=== PATIENT | male | born 1955 | race Caucasian/White ===

== ENCOUNTER 2019-11-08 12:41 | Emergency (ER) | payer BC ==
[2019-11-08 12:51] VITALS: TEMP 98.7; BMI 32.5
--- NOTE | 2019-11-08 13:27 | PDOC ---
History of Present Illness - General Chief Complaint: Shortness of Breath Stated Complaint: SOB Time Seen by Provider: 11/08/19 13:03 History Source: Patient Exam Limitations: No Limitations - History of Present Illness Initial Comments: 11/08/19 13:04 PCP: Jennifer HPI: 64yo M pmh HTN,COVID+ in July, symptomatic for several weeks with fever, cough, SOB, self quarantined at home, repeat negative on 08/29/19, presenting with "I think I have panic attacks since COVID." Patient reports roughly 1 episode of waking up in the night with shortness of breath and feeling panicked. He reports that his symptoms spontaneously resolve when he attempts to fall back asleep. He states that he has no symptoms at present. Denies chest pain, SOB at present, syncope, lightheadedness, fevers, chills, palpitations, cough, nausea, vomiting, abdominal pain, weakness, numbness / tingling. Denies edema then when edema demonstrated, says it is because he wears tight socks. Expressed concern with access to his PCP as primary reason for presentation today. Recently started on Trazodone for insomnia but reports he does not use it as directed, instead taking it PRN during the night when he experiences an episode of presenting complaint. 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 All: Sulfa medications, avoids ASA due to remote peptic ulcer Meds: Metoprolol, Trazodone, B12 PMH: As above PSH: Denies Past History - Travel History Traveled outside of the country in the last 30 days: No Close contact w/someone who was outside of country & ill: No - Medical History Allergies/Adverse Reactions: Allergies Allergy/AdvReac Type Severity Reaction Status Date / Time Sulfa (Sulfonamide Allergy Hives Unverified 08/10/14 07:10 Antibiotics) [Sulfa(Sulfonamide Antibiotics)] aspirin AdvReac Severe Unverified 08/10/14 07:10 Home Medications: Ambulatory Orders Acetaminophen W/ Codeine #3 [Tylenol # 3 -] 1 tab PO Q6H PRN #12 tablet 08/10/14 Vitamin B12 1,000 mcg PO DAILY 10/24/14 Anemia: No Asthma: No Cancer: No Cardiac Disorders: No CVA: No COPD: No CHF: No Dementia: No Diabetes: No GI Disorders: Yes (BLEEDING ULCER, BLOATING, REFLUX, POLYPS) Disorders: No HTN: No Hypercholesterolemia: No Kidney Stones: Yes Liver Disease: No Seizures: No Thyroid Disease: No - Surgical History Abdominal Surgery: Yes (rt ing hernia) Appendectomy: No Cardiac Surgery: No Cholecystectomy: No Lung Surgery: No Neurologic Surgery: No Orthopedic Surgery: No - Immunization History Immunization Up to Date: No - Psycho-Social/Smoking History Smoking Status: No Smoking History: Never smoked Have you smoked in the past 12 months: No Number of Cigarettes Smoked Daily: 12 If you are a former smoker, when did you quit?: 40 YRS AGO Information on smoking cessation initiated: No - Substance Abuse Hx (Audit-C & DAST Scrn) How often the patient has a drink containing alcohol: Never Score: In Men: 4 or > Positive; In Women: 3 or > Positive: 0 Screen Result (Pos requires Nsg. Audit-10AR): Negative In the last yr the pt used illegal drug/Rx for NonMed reason: No Score: Yes response is considered Positive: 0 Screen Result (Positive result requires Nsg. DAST-10): Negative Review of Systems - Review of Systems Able to Perform ROS?: Yes Is the patient limited Yemeni proficient: Yes Constitutional: No: Chills, Diaphoresis, Fever, Night Sweats, Weakness HEENTM: No: Nose Congestion, Throat Pain, Mouth Pain Respiratory: Yes: Shortness of Breath (during overnight panic episodes). No: Cough, SOB with Exertion, SOB at Rest, Wheezing Cardiac (ROS): Yes: Edema ("from my tight socks"). No: Chest Pain, Irregular Heart Rate, Lightheadedness, Palpitations, Syncope, Chest Tightness ABD/GI: No: Constipated, Diarrhea, Nausea, Vomiting : No: Burning, Dysuria, Frequency Musculoskeletal: No: Muscle Pain, Muscle Weakness Integumentary: No: Pallor, Pruritus, Rash Neurological: No: Headache, Numbness, Tingling, Weakness Psychiatric: Yes: Anxiety, Stressors (COVID-19), Sleep Pattern Change (interm ittent insomnia). No: Change in Appetite Endocrine: No: Increased Thirst, Increased Urine, Change in Weight Hematologic/Lymphatic: No: Anemia, Blood Clots, Easy Bleeding All Other Systems: Reviewed and Negative *Physical Exam - Vital Signs Last Vital Signs Temp Pulse Resp BP Pulse Ox 98.7 F 114 H 16 152/107 H 98 11/08/19 12:46 11/08/19 12:46 11/08/19 12:46 11/08/19 12:46 11/08/19 12:46 - Physical Exam 11/08/19 14:11 Vitals reviewed, notable for tachycardia on arrival, stable O2 Sat, afebrile, mild hypertension GEN: Well appearing, appears stated age, NAD, comfortable. AAOx3. HEENT: NCAT, EOMI, PERRL. Sclera anicteric, non-injected. No facial asymmetry. Moist mucous membranes. Normal voice. Trachea midline. CV: RRR, S1/S2, no murmurs / rubs / gallops appreciated. LUNG: CTABL, normal work of breathing. No wheezes, rales, rhonchi. No cough. Speaking full sentences. GI: Soft, NTND, +BS, no guarding, no rebound. No masses. EXTREMITIES: 2+ distal pulses. +trace bilateral edema at the ankles. No clubbing / cyanosis. No gross deformity in any extremity. SKIN: Warm, dry, no rashes appreciated, non-jaundiced. PSYCH: Normal mood and affect. Cooperative and appropriate. NEURO: CN grossly intact. Moving all extremities well. Normal strength and sensation grossly. Medical Decision Making - Medical Decision Making 11/08/19 13:36 Patient requested to leave AMA. Patient is determined to be of sound mind and reasoning. The patient fully understands the care they are refusing and the risks associated with leaving before complete medical evaluation as explained by the medical team. The patient has been provided with a discharge summary, return precautions, and the reassurance that the Emergency Department will resume workup if the patient changes their mind. Immediate primary care follow up has been urged. At time of AMA, patient BP 147/91, HR 98, RR 18, Sat 96% on RA. 11/08/19 13:38 Patient concerning for r/o PE given recent COVID-19 infection, no anticoagulation with shortness of breath and tachycardia. Advised that leaving could result in progression and . Recommended labs, imaging to rule out PE, new CHF, PNA. Despite this, patient states he does not want to stay and wishes to follow up with his PCP and will return if he feels worse. Denies symptoms at present and says he believes his overnight symptoms were a panic attack but understand the risks of it being something else. Discharge - Discharge Information Problems reviewed: Yes Clinical Impression/Diagnosis: Shortness of breath Condition: Stable Disposition: AGAINST MEDICAL ADVICE - Follow up/Referral Referrals: Bonnie Rodriguez MD [Primary Care Provider] - - Patient Discharge Instructions Patient Printed Discharge Instructions: DI for Pulmonary Embolism Additional Instructions: You are leaving against medical advice and refusing evaluation and treatment of shortness of breath . It is essential that you follow up with your primary care physician within the next 1-2 days. Please return to the Emergency Department if you change your mind and wish to continue evaluation of your symptoms or if you experience any of the following: - worsening of your symptoms - chest pain - shortness of breath and/or difficulty breathing - seizure - changes in behavior - lightheadedness, and/or dizziness - severe abdominal pain - severe or bloody vomiting - bloody diarrhea - inability to eat or drink - anything that concerns you - Post Discharge Activity
--- NOTE | 2019-11-08 13:57 | PDOC ---
Documentation entered by Milan Rae SCRIBE, acting as scribe for Jason Veliz MD. Jason Veliz MD: This documentation has been prepared by the Hang barfield inMilan SCRIBE, under my direction and personally reviewed by me in its entirety. I confirm that the documentation accurately reflects all work, treatment, procedures, and medical decision making performed by me. Attending Attestation - Resident Resident Name: BranHakeem quintanilla - ED Attending Attestation I have performed the following: I have examined & evaluated the patient, The case was reviewed & discussed with the resident, I agree w/resident's findings & plan, Exceptions are as noted - HPI HPI: 11/08/19 13:48 The patient is a 64 year old male with a significant PMHx of HTN, COVID+ in July (repeat negative on 08/29/2019) peptic ulcer disease and kidney stones, patient reports lithotripsy (6 years ago [address] urologist Dr[address] Espino), who reports to the ED with panic attacks. Pt states he has 1panic attack per week since COVID-19. Allergies: Sulfa (Sulfonamide Antibiotics), aspirin PCP: Dr. Cerrato - Physicial Exam PE: 11/08/19 13:56 EXAMINATION CONSTITUTIONAL: Well-appearing; well-nourished; Mildly anxious appearing; in no apparent distress HEAD: Normocephalic; atraumatic EYES: PERRL; EOM intact ENMT: External appears normal; normal oropharynx NECK: Supple; non-tender; no cervical lymphadenopathy CARD: Normal S1, S2; no murmurs, rubs, or gallops RESP: Normal chest excursion with respiration; breath sounds clear and equal bilaterally; no wheezes, rhonchi, or rales ABD: Soft, non-distended; non-tender; no palpable organomegaly, no palpable hernias EXT: Normal ROM in all four extremities; non-tender to palpation; distal pulses intact SKIN: Warm, dry, no rash NEURO: No focal neurological deficiencies. - Medical Decision Making 11/08/19 13:56 64-year-old male with history of hypertension presented with shortness of breath and hypertension claiming that it was a panic attack. Patient refused to allow for an EKG or any other evaluation. Patient wishes to leave and promises to return promptly after taking up his child. Patient has been advised of the risk associated with undiagnosed ACS versus PE. Patient expressed understanding but still wishes to leave. Discharge - Discharge Information Problems reviewed: Yes Clinical Impression/Diagnosis: Shortness of breath Condition: Stable Disposition: AGAINST MEDICAL ADVICE - Follow up/Referral Referrals: Bonnie Rodriguez MD [Primary Care Provider] - - Patient Discharge Instructions Patient Printed Discharge Instructions: DI for Pulmonary Embolism Additional Instructions: You are leaving against medical advice and refusing evaluation and treatment of shortness of breath . It is essential that you follow up with your primary care physician within the next 1-2 days. Please return to the Emergency Department if you change your mind and wish to continue evaluation of your symptoms or if you experience any of the following: - worsening of your symptoms - chest pain - shortness of breath and/or difficulty breathing - seizure - changes in behavior - lightheadedness, and/or dizziness - severe abdominal pain - severe or bloody vomiting - bloody diarrhea - inability to eat or drink - anything that concerns you - Post Discharge Activity
[2019-11-08 14:25] VITALS: BP 142/90; PULSE 98
== END 2019-11-08 14:15 | disposition left against medical advice (07) ==
LOC: JER 12:41
DX: R06.02 Shortness of breath (principal)
CPT/HCPCS: 99283-25

== ENCOUNTER 2019-11-09 08:16 | Inpatient (IN) | payer BC ==
--- NOTE | 2019-11-09 08:36 | PDOC ---
Attending Attestation - Resident Resident Name: Carlton Garcia - HPI HPI: 11/09/19 09:48 Pt presents to the ED complaining of shortness of breath that has been persistent since he was diagnosed with COVID in July, but was worse yesterday. Denies orthopnea, but does complain of OLIVEIRA. Denies chest pain. Denies leg swelling or weight gain. Patient has seen his PCP for these complaints, who attributed his symptoms to anxiety. 11/09/19 09:53 - Physicial Exam PE: 11/09/19 09:55 Agree with resident exam. PAtient is alert and oriented x 3 and in no acute distress. CV: tachycardic, irregularly irregular, no murmurs. Pulm: + crackles in the bases. + tachypnea. 11/09/19 09:56 - Medical Decision Making 11/09/19 09:57 Pt presents to the ED complaining of OLIVEIRA and shortness of breath. EKG shows A fib, which is apparently new. CXR is consistent with CHF. Will check labs and BNP. Will reassess. 11/09/19 09:58 Discharge - Discharge Information Problems reviewed: Yes Clinical Impression/Diagnosis: Shortness of breath, CHF (congestive heart failure), A-fib, Anxiety Condition: Improved Disposition: HOME - Follow up/Referral - Patient Discharge Instructions - Post Discharge Activity
--- NOTE | 2019-11-09 08:58 | PDOC ---
History of Present Illness - General Chief Complaint: Shortness of Breath Stated Complaint: SOB Time Seen by Provider: 11/09/19 08:27 - History of Present Illness Initial Comments: Mitch Cam is a 64 y/o male with PMH significant for asthma and COVID-19, presenting today with shortness of breath and anxiety. Reports that after being diagnosed with COVID in July, he has had difficulty sleeping and feels anxious. Prescribed trazadone. Reports that over the past two days he has had mild shortness of breath worse on exertion and anxiety. Denies chest pain. Denies fever/chills. Denies headache. Denies back pain. Denies abd pain. No stool/urinary symptoms. Past History - Medical History Allergies/Adverse Reactions: Allergies Allergy/AdvReac Type Severity Reaction Status Date / Time Sulfa (Sulfonamide Allergy Hives Unverified 11/09/19 08:24 Antibiotics) [Sulfa(Sulfonamide Antibiotics)] aspirin AdvReac Severe Unverified 11/09/19 08:24 Home Medications: Ambulatory Orders Acetaminophen W/ Codeine #3 [Tylenol # 3 -] 1 tab PO Q6H PRN #12 tablet 08/10/14 Vitamin B12 1,000 mcg PO DAILY 10/24/14 Anemia: No Asthma: No Cancer: No Cardiac Disorders: No CVA: No COPD: No CHF: No Dementia: No Diabetes: No GI Disorders: Yes (BLEEDING ULCER, BLOATING, REFLUX, POLYPS) Disorders: No HTN: No Hypercholesterolemia: No Kidney Stones: Yes Liver Disease: No Seizures: No Thyroid Disease: No - Surgical History Abdominal Surgery: Yes (rt ing hernia) Appendectomy: No Cardiac Surgery: No Cholecystectomy: No Lung Surgery: No Neurologic Surgery: No Orthopedic Surgery: No - Immunization History Immunization Up to Date: No - Psycho-Social/Smoking History Smoking Status: No Smoking History: Never smoked Have you smoked in the past 12 months: No Number of Cigarettes Smoked Daily: 12 If you are a former smoker, when did you quit?: 40 YRS AGO Information on smoking cessation initiated: No - Substance Abuse Hx (Audit-C & DAST Scrn) How often the patient has a drink containing alcohol: Never Score: In Men: 4 or > Positive; In Women: 3 or > Positive: 0 Screen Result (Pos requires Nsg. Audit-10AR): Negative In the last yr the pt used illegal drug/Rx for NonMed reason: No Score: Yes response is considered Positive: 0 Screen Result (Positive result requires Nsg. DAST-10): Negative Review of Systems - Review of Systems Comments:: GENERAL/CONSTITUTIONAL: No fever or chills. No weakness._ HEAD, EYES, EARS, NOSE AND THROAT: No change in vision. No change in hearing. No sore throat._ CARDIOVASCULAR: No chest pain. Reports shortness of breath. RESPIRATORY: Denies cough, hemoptysis_ GASTROINTESTINAL: No nausea, vomiting, diarrhea or constipation._ GENITOURINARY: No dysuria, frequency, or change in urination._ MUSCULOSKELETAL: No joint or muscle swelling or pain. No neck or back pain._ SKIN: No rash_ NEUROLOGIC: No headache, vertigo, loss of consciousness, or change in strength/sensation._ ENDOCRINE: No increased thirst. No abnormal weight change_ HEMATOLOGIC/LYMPHATIC: No anemia, easy bleeding, or history of blood clots._ ALLERGIC/IMMUNOLOGIC: No hives or skin allergy._ PSYCH: Reports anxiety. *Physical Exam - Vital Signs Last Vital Signs Temp Pulse Resp BP Pulse Ox 97.9 F 115 H 21 H 161/108 H 96 11/09/19 08:19 11/09/19 08:19 11/09/19 08:19 11/09/19 08:19 11/09/19 08:19 - Physical Exam GENERAL: Awake, alert, and oriented to person/place/time, in no acute distress_ HEAD: No signs of trauma, normocephalic, atraumatic _ EYES: PERRLA, EOMI, sclera anicteric, conjunctiva clear_ ENT: Hearing grossly normal, nares patent, oropharynx clear without exudates. No uvular deviation. Moist mucosa_ NECK: Normal ROM, supple, no lymphadenopathy, JVD, or masses_ LUNGS: No distress, speaks in full sentences, clear to auscultation bilaterally. HEART: Tachycardic, normal S1 and S2, no murmurs appreciated, peripheral pulses normal and equal bilaterally._ ABDOMEN: Soft, nontender, normoactive bowel sounds. No guarding, no rebound. No masses_ EXTREMITIES: Normal inspection, Normal range of motion. 1+ pitting edema in bila teral lower extremities. No clubbing or cyanosis_ NEUROLOGICAL: Cranial nerves II through XII grossly intact. Normal speech, normal gait, no focal sensorimotor deficits _ SKIN: Warm, Dry, normal turgor, no rashes or lesions noted_ ED Treatment Course - LABORATORY CBC & Chemistry Diagram: 11/09/19 09:00 11/09/19 09:00 - RADIOLOGY Radiology Studies Ordered: Category Date Time Status CHEST X-RAY PORTABLE* [RAD] Stat Radiology 11/09/19 08:35 Completed Medical Decision Making - Medical Decision Making 64M hx of asthma presenting with shortness of breath and anxiety for the past two days. Has had anxiety since July. Tachycardic at bedside. -labs -ekg -cxr 11/09/19 08:57 CXR shows cardiomegaly, congestive changes, atelectasis, fluid in RLL. Will add BNP. 11/09/19 09:18 EKG shows 117 bpm, a-fib with RVR, no ST elevation, no axis deviation, QTc 504. Currently prescribed metoprolol but concern for new onset CHF. 10 mg diltiazem. 11/09/19 10:23 D/w Dr. Dunlap cardiology. Can give lopressor if needed. Will come in to evaluate. Lasix 20 mg Labs reviewed. Laboratory Last Values WBC 7.9 K/mm3 (4.0-10.0) 11/09/19 09:00 RBC 4.74 M/mm3 (4.00-5.60) 11/09/19 09:00 Hgb 14.8 GM/dL (11.7-16.9) 11/09/19 09:00 Hct 44.6 % (35.4-49) 11/09/19 09:00 MCV 94.0 fl (80-96) 11/09/19 09:00 MCH 31.2 pg (25.7-33.7) 11/09/19 09:00 MCHC 33.2 g/dl (32.0-35.9) 11/09/19 09:00 RDW 13.7 % (11.9-15.9) 11/09/19 09:00 Plt Count 290 K/MM3 (134-434) 11/09/19 09:00 MPV 9.2 fl (7.5-11.1) 11/09/19 09:00 Absolute Neuts (auto) 6.0 K/mm3 (1.5-8.0) 11/09/19 09:00 Neutrophils % 75.8 % (42.8-82.8) 11/09/19 09:00 Lymphocytes % 15.5 % (8-40) 11/09/19 09:00 Monocytes % 7.3 % (3.8-10.2) 11/09/19 09:00 Eosinophils % 0.8 % (0-4.5) 11/09/19 09:00 Basophils % 0.6 % (0-2.0) 11/09/19 09:00 Nucleated RBC % 0 % (0-0) 11/09/19 09:00 PT with INR 13.30 SEC (9.7-13.0) H 11/09/19 09:00 INR 1.13 (0.83-1.09) H 11/09/19 09:00 PTT (Actin FS) 31.0 SECONDS (25.2-36.5) 11/09/19 09:00 Sodium 142 mmol/L (136-145) 11/09/19 09:00 Potassium 4.5 mmol/L (3.5-5.1) 11/09/19 09:00 Chloride 108 mmol/L (98-107) H 11/09/19 09:00 Carbon Dioxide 26 mmol/L (21-32) 11/09/19 09:00 Anion Gap 8 MMOL/L (8-16) 11/09/19 09:00 BUN 21.7 mg/dL (7-18) H 11/09/19 09:00 Creatinine 1.0 mg/dL (0.55-1.3) 11/09/19 09:00 Est GFR (CKD-EPI)AfAm 90.50 11/09/19 09:00 Est GFR (CKD-EPI)NonAf 78.08 11/09/19 09:00 Random Glucose 107 mg/dL (74-106) H 11/09/19 09:00 Calcium 9.2 mg/dL (8.5-10.1) 11/09/19 09:00 Total Bilirubin 0.8 mg/dL (0.2-1) 11/09/19 09:00 AST 35 U/L (15-37) 11/09/19 09:00 ALT 72 U/L (13-61) H 11/09/19 09:00 Alkaline Phosphatase 81 U/L (45-117) 11/09/19 09:00 B-Natriuretic Peptide 7693.5 pg/ml (5-125) H 11/09/19 09:00 Total Protein 6.8 g/dl (6.4-8.2) 11/09/19 09:00 Albumin 3.6 g/dl (3.4-5.0) 11/09/19 09:00 11/09/19 10:58 D/w Dr. Walton who accepts the patient for admission. Requests CTA PE and BLE duplex US to r/o PE. Discharge - Discharge Information Problems reviewed: Yes Clinical Impression/Diagnosis: Shortness of breath, CHF (congestive heart failure), A-fib, Anxiety Condition: Stable - Admission Yes - Follow up/Referral - Patient Discharge Instructions - Post Discharge Activity
[2019-11-09] MEDS ORDERED: dilTIAZem HCL 50 MG/10 ML - 10 ML VIAL IVPUSH ONE (09:18)
[2019-11-09] MEDS ORDERED: dilTIAZem HCL 125 MG/25 ML - 25 ML VIAL ONE (09:25)
[2019-11-09 09:39] LABS: BASO % 0.6 % (0-2.0); EOS % 0.8 % (0-4.5); HEMATOCRIT 44.6 % (35.4-49); HEMOGLOBIN 14.8 GM/dL (11.7-16.9); LYMPH % 15.5 % (8-40); MCH 31.2 pg (25.7-33.7); MCHC 33.2 g/dl (32.0-35.9); MEAN PLT VOLUME 9.2 fl (7.5-11.1); MONO % 7.3 % (3.8-10.2); NEUT % 75.8 % (42.8-82.8); PLATELET COUNT 290 K/MM3 (134-434); RBC 4.74 M/mm3 (4.00-5.60); RDW 13.7 % (11.9-15.9); WHITE BLOOD COUNT 7.9 K/mm3 (4.0-10.0)
[2019-11-09 09:46] LABS: INR 1.13 (0.83-1.09); PROTHROMBIN TIME (PATIENT) 13.3 SEC (9.7-13.0)
[2019-11-09 09:57] LABS: POTASSIUM 4.5 mmol/L (3.5-5.1)
[2019-11-09 10:03] LABS: ALBUMIN 3.6 g/dl (3.4-5.0); BLOOD UREA NITROGEN 21.7 mg/dL (7-18); CALCIUM 9.2 mg/dL (8.5-10.1)
[2019-11-09 10:07] LABS: BILIRUBIN,TOTAL 0.8 mg/dL (0.2-1); N-TERMINAL BNP 7693.5 pg/ml (5-125); TOT PROT 6.8 g/dl (6.4-8.2)
--- NOTE | 2019-11-09 10:21 | CON.CARD ---
Consult Consult Specialty:: Cardiology Referred by:: Emergency Medicine Reason for Consultation:: Dyspnea, rapid afib - History of Present Illness Chief Complaint: Dyspnea History of Present Illness: Mitch Cam is a 64 y/o male with PMH significant for peptic ulcer disease, kidney stones with lithotripsy, asthma and COVID-19 in July, presenting today with shortness of breath with exertion, palpitations, light-headedness, anxiety, orthopnea, LE edema. Reports that after being diagnosed with COVID in July, he has had difficulty sleeping and feels anxious. Prescribed trazadone. Reports that over the past two days he has had mild shortness of breath worse on exertion and anxiety. Denies chest pain, true syncope, reports medication compliance. - History Source History Provided By: Patient Limitations to Obtaining History: No Limitations - Alcohol/Substance Use Hx Alcohol Use: No - Smoking History Smoking history: Never smoked Have you smoked in the past 12 months: No Aproximately how many cigarettes per day: 12 If you are a former smoker, when did you quit?: 40 YRS AGO Home Medications - Allergies Allergies/Adverse Reactions: Allergies Allergy/AdvReac Type Severity Reaction Status Date / Time Sulfa (Sulfonamide Allergy Hives Unverified 11/09/19 08:24 Antibiotics) [Sulfa(Sulfonamide Antibiotics)] aspirin AdvReac Severe Unverified 11/09/19 08:24 - Home Medications Home Medications: Ambulatory Orders Acetaminophen W/ Codeine #3 [Tylenol # 3 -] 1 tab PO Q6H PRN #12 tablet 08/10/14 Vitamin B12 1,000 mcg PO DAILY 10/24/14 Review of Systems - Review of Systems Cardiovascular: reports: Edema, Palpitations Respiratory: reports: SOB on Exertion Vital Signs: Vital Signs Temperature 97.9 F 11/09/19 08:19 Pulse Rate 115 H 11/09/19 08:24 Respiratory Rate 20 11/09/19 10:15 Blood Pressure 153/102 H 11/09/19 10:15 O2 Sat by Pulse Oximetry (%) 96 11/09/19 10:15 Constitutional: Yes: No Distress, Calm Neck: Yes: Supple Respiratory: Yes: Regular, Diminished, On Nasal O2, Rales, SOB on Exertion Gastrointestinal: Yes: Normal Bowel Sounds, Soft, Abdomen, Obese Cardiovascular: Yes: Tachycardia, Pulse Irregular JVD: No Carotid Bruit: No Heart Sounds: Yes: S1, S2 Murmur: Yes: Systolic Murmur, Grade 1 Edema: Yes Edema: LLE: 1+, RLE: 1+ - Other Data Labs, Other Data: CBC, BMP 11/09/19 09:00 11/09/19 09:00 INR, PTT INR 1.13 (0.83-1.09) H 11/09/19 09:00 Troponin, BNP 11/09/19 09:00 B-Natriuretic Peptide 7693.5 H Troponin, BNP 11/09/19 09:00 B-Natriuretic Peptide 7693.5 H Afib @ [address] changes Ejection Fraction %: LVEF > or = 40 % Imaging - Results Chest X-ray: Report Reviewed (Congestion, right effusion) Problem List - Problems (1) Paroxysmal atrial fibrillation with rapid ventricular response Code(s): I48.0 - PAROXYSMAL ATRIAL FIBRILLATION (2) Acute diastolic (congestive) heart failure Code(s): I50.31 - ACUTE DIASTOLIC (CONGESTIVE) HEART FAILURE (3) Hypertensive cardiomyopathy Code(s): I11.9 - HYPERTENSIVE HEART DISEASE WITHOUT HEART FAILURE; I43 - CARDIOMYOPATHY IN DISEASES CLASSIFIED ELSEWHERE Qualifiers: Heart failure presence: with heart failure Qualified Code(s): I11.0 - Hypertensive heart disease with heart failure; I43 - Cardiomyopathy in diseases classified elsewhere Assessment/Plan 1. Acute diastolic heart failure 2. Atrial fibrillation with RVR 3. Hypertensive heart disease 4. R/O OSAS 5. PUD not active P:1. IV diuresis with monitor diuretic response, renal fxn and electrolytes 2. Echocardiogram to assess ventricular and valve fxn, atrial sizes, f/u TSH, lipid panel, Ha1c 3. Continue Toprol XL 50 qd, IV Cardizem as needed for rate control, Eliquis 5 bid given elevated risk score, consider DCCV if no spontaneous cardioversion with rate-control 4. Sleep study as outpatient r/o OSAS 5. F/u in office 6. Thank you for consultative opportunity
[2019-11-09] MEDS ORDERED: FUROSEMIDE 40 MG/4 ML INJECTABLE VIAL IVPUSH ONE (10:22)
[2019-11-09] MEDS ORDERED: dilTIAZem HCL 50 MG/10 ML - 10 ML VIAL IVPUSH PRN (10:47)
[2019-11-09] MEDS ORDERED: FUROSEMIDE 40 MG/4 ML INJECTABLE VIAL ONE (11:01)
--- NOTE | 2019-11-09 11:48 | EKG ---
Test Reason : Blood Pressure : / mmHG Vent. Rate : 117 BPM Atrial Rate : 102 BPM P-R Int : 000 ms QRS Dur : 094 ms QT Int : 362 ms P-R-T Axes : 000 -07 102 degrees QTc Int : 504 ms ATRIAL FIBRILLATION WITH RAPID VENTRICULAR RESPONSE NONSPECIFIC ST ABNORMALITY ABNORMAL QRS-T ANGLE, CONSIDER PRIMARY T WAVE ABNORMALITY ABNORMAL ECG WHEN COMPARED WITH ECG OF 21-JAN-2017 13:49, ATRIAL FIBRILLATION HAS REPLACED SINUS RHYTHM T WAVE AMPLITUDE HAS DECREASED IN LATERAL LEADS Confirmed by BOWEN LEUNG MD ([id number]) on 11/09/2019 11:48:01 AM Referred By: Confirmed By:BOWEN LEUNG MD
[2019-11-09 11:51] LABS: EPI CELLS 9 /uL (0-25.1); HYALINE CASTS 4 /uL (0-3.1); PH,URINE 5.5 (5.0-8.0); URINE APPEARANCE CLEAR; URINE BACTERIA 23 /uL (0-1359); URINE BILIRUBIN NEGATIVE (NEGATIVE); URINE COLOR DK YELLOW; URINE GLUCOSE (UA) NEGATIVE (NEGATIVE); URINE KETONE NEGATIVE (NEGATIVE); URINE LEUK ESTERASE NEGATIVE (NEGATIVE); URINE NITRITE NEGATIVE (NEGATIVE); URINE PROTEIN 1+ (NEGATIVE); URINE RBC 13 /uL (0-23.9); URINE UROBILINOGEN 0.2 mg/dL (0.2-1.0); URINE WBC 21 /uL (0-25.8)
--- NOTE | 2019-11-09 13:37 | ECHO ---
Name: CHARITYARA GALVIN Exam:Adult Echocardiogram Study Date: 11/09/2019 11:22 AM Age: 64 yrs Reason For Study: afib MMode/2D Measurements & Calculations IVSd: 1.5 cm Ao root diam: 3.8 cm LVIDd: 4.6 cm LA dimension: 4.5 cm LVIDs: 4.2 cm LVPWd: 1.5 cm IVSs: 1.7 cm LVPWs: 2.0 cm EDV(Teich): 98.5 ml ESV(Teich): 76.8 ml LAV (MOD-bp): 146.0 ml TAPSE: 1.8 cm RV S Sandeep: 10.4 cm/sec Doppler Measurements & Calculations MV E max sandeep: 110.4 cm/sec Ao V2 max: 150.9 cm/sec MV A max sandeep: 79.5 cm/sec Ao max P.3 mmHg MV E/A: 1.4 AI P1/2t: 354.7 msec MV dec time: 0.09 sec AI max sandeep: 385.4 cm/sec LV V1 max P.0 mmHg AI max P.8 mmHg LV V1 max: 85.9 cm/sec AI dec slope: 318.3 cm/sec2 Med Peak E' Sandeep: 3.5 cm/sec Med E/e': 31.5 Procedure A complete two-dimensional transthoracic echocardiogram was performed (2D, M-mode, Doppler and color flow Doppler). The patient was in atrial fibrillation with rapid ventricular response during the exam with a heart rate exceeding 100 bpm. Left Ventricle The left ventricle is normal in size. LVEF difficult to assess due to afib with rvr during study, adrianna ears to be mildly reduced. Ejection Fraction = 45-50%. There is mild global hypokinesis of the left ventricle . Right Ventricle The right ventricle is normal in size and function. Atria The left atrium is moderately dilated. Right atrial size is normal. Mitral Valve There is no mitral regurgitation noted. Tricuspid Valve No tricuspid regurgitation. There was insufficient TR detected to calculate RV systolic pressure. Aortic Valve No hemodynamically significant valvular aortic stenosis. Mild aortic regurgitation. Pulmonic Valve There is no pulmonic valvular regurgitation. Great Vessels Mild aortic root dilatation. Pericardium/Pleura There is no pericardial effusion. Interpretation Summary The patient was in atrial fibrillation with rapid ventricular response during the exam. LVEF difficult to assess due to afib with rvr during study, appears to be mildly reduced. There is mild global hypokinesis of the left ventricle. The left ventricle is normal in size. The right ventricle is normal in size and function. The left atrium is moderately dilated. Mild aortic regurgitation. Mild aortic root dilatation. MD Kale Francois 11/09/2019 01:36 PM
[2019-11-09] MEDS: FUROSEMIDE 40 MG/4 ML INJECTABLE VIAL IVPUSH SCH (14:19)
--- NOTE | 2019-11-09 15:47 | HP ---
Admitting History and Physical - Admission History of Present Illness: 64 y/o male with PMH significant for asthma and COVID-19, presenting today with shortness of breath and anxiety. Reports that after being diagnosed with COVID in July, he has had difficulty sleeping and feels anxious. Prescribed trazadone. Reports that over the past two days he has had mild shortness of breath worse on exertion and anxiety. Denies chest pain. Denies fever/chills. Denies headache. Denies back pain. Denies abd pain. No stool/urinary symptoms. History Source: Patient Limitations to Obtaining History: Poor Historian - Past Medical History Cardiovascular: Yes: CAD Pulmonary: Yes: Other (H/O COVID-19 Positive in the past and Recovered) Gastrointestinal: Yes: Other (constipation) Renal/: Yes: Renal Calculi, Other (S/P Lithotripsy) Psych: Yes: Anxiety (Insomnia Post COVID infection) - Smoking History Smoking history: Never smoked Have you smoked in the past 12 months: No Aproximately how many cigarettes per day: 12 If you are a former smoker, when did you quit?: 40 YRS AGO - Alcohol/Substance Use Hx Alcohol Use: No - Social History Usual Living Arrangement: Yes: With Spouse History of Recent Travel: No Home Medications - Allergies Allergies/Adverse Reactions: Allergies Allergy/AdvReac Type Severity Reaction Status Date / Time Sulfa (Sulfonamide Allergy Hives Unverified 11/09/19 08:24 Antibiotics) [Sulfa(Sulfonamide Antibiotics)] aspirin AdvReac Severe Unverified 11/09/19 08:24 - Home Medications Home Medications: Ambulatory Orders Acetaminophen W/ Codeine #3 [Tylenol # 3 -] 1 tab PO Q6H PRN #12 tablet 08/10/14 Vitamin B12 1,000 mcg PO DAILY 10/24/14 Review of Systems - Review of Systems Constitutional: reports: Weakness Eyes: reports: No Symptoms HENT: reports: Hearing Loss Cardiovascular: reports: Other (Palpiations and chest pain) Respiratory: reports: SOB on Exertion Genitourinary: reports: Other (H/O Lithitripsy for stones) Musculoskeletal: reports: Back Pain Neurological: reports: Headache, Weakness Hematology/Lymphatic: reports: No Symptoms Psychiatric: reports: Anxiety Physical Examination Vital Signs: Vital Signs Temperature 97.9 F 11/09/19 08:19 Pulse Rate 97 H 11/09/19 14:00 Respiratory Rate 22 H 11/09/19 14:00 Blood Pressure 128/89 11/09/19 14:00 O2 Sat by Pulse Oximetry (%) 96 11/09/19 14:00 Labs: CBC, BMP 11/09/19 09:00 11/09/19 09:00 Problem List - Problems (1) HTN (hypertension) Code(s): I10 - ESSENTIAL (PRIMARY) HYPERTENSION (2) A-fib Code(s): I48.91 - UNSPECIFIED ATRIAL FIBRILLATION (3) Acute diastolic (congestive) heart failure Code(s): I50.31 - ACUTE DIASTOLIC (CONGESTIVE) HEART FAILURE (4) Anxiety Code(s): F41.9 - ANXIETY DISORDER, UNSPECIFIED (5) CHF (congestive heart failure) Code(s): I50.9 - HEART FAILURE, UNSPECIFIED (6) Back strain Code(s): S39.012A - STRAIN OF MUSCLE, FASCIA AND TENDON OF LOWER BACK, INIT Assessment/Plan (1) HTN (hypertension) Code(s): I10 - ESSENTIAL (PRIMARY) HYPERTENSION (2) A-fib Code(s): I48.91 - UNSPECIFIED ATRIAL FIBRILLATION (3) Acute diastolic (congestive) heart failure Code(s): I50.31 - ACUTE DIASTOLIC (CONGESTIVE) HEART FAILURE (4) Anxiety Code(s): F41.9 - ANXIETY DISORDER, UNSPECIFIED (5) CHF (congestive heart failure) Code(s): I50.9 - HEART FAILURE, UNSPECIFIED (6) Back strain Code(s): S39.012A - STRAIN OF MUSCLE, FASCIA AND TENDON OF LOWER BACK, INIT/ Pt Had Echo. ECHO findings suggestive of Low EF and Pul HTN/ Cardiomyopathy? we will discuss with Cardiology. Today cardiology FU is inconclusive.
[2019-11-09] MEDS ORDERED: LORazepam 2 MG TABLET PO ONE (16:36)
[2019-11-09] MEDS ORDERED: LORazepam 0.5 MG TABLET ONE (16:41)
[2019-11-09] MEDS: APIXABAN 5 MG TABLET PO SCH (22:32)
[2019-11-10 03:55] VITALS: BMI 30.5
[2019-11-10] MEDS: FUROSEMIDE 40 MG/4 ML INJECTABLE VIAL IVPUSH SCH (06:10)
[2019-11-10 08:53] LABS: BLOOD UREA NITROGEN 20.1 mg/dL (7-18); CREATININE 1.2 mg/dL (0.55-1.3); POTASSIUM 4.1 mmol/L (3.5-5.1)
[2019-11-10] MEDS: APIXABAN 5 MG TABLET PO SCH ×2 (09:23→22:19)
--- NOTE | 2019-11-10 09:53 | PN ---
Progress Note (short form) - Note Progress Note: Pt is is a 64 y/o male with PMH significant for peptic ulcer disease, kidney stones with HTN,lithotripsy, asthma and COVID-19 in July, presenting today with shortness of breath with exertion, palpitations, light-headedness, anxiety, orthopnea, LE edema. Reports that after being diagnosed with COVID in July, he has had difficulty sleeping and feels anxious. Prescribed trazadone. Reports that over the past two days he has had mild shortness of breath worse on exerti on and anxiety. Denies chest pain, true syncope, reports medication compliance. 11/09; pt feels better, SOB decreased,no CP/Palpitations; states was taking metoprolol for HTn at home, not clear if BP controllrd reviewed Echo: CMP with EF 30-355, dilated atria and myopathic e', elevated PCWP - Vital Signs Temperature 98.2 F 11/10/19 07:47 Pulse Rate 119 H 11/10/19 07:47 Respiratory Rate 22 H 11/10/19 07:47 Blood Pressure 147/85 11/10/19 07:47 O2 Sat by Pulse Oximetry (%) 95 11/10/19 07:47 Constitutional: Yes: No Distress, Calm Neck: Yes: Supple Respiratory: Yes: Regular, Diminished, On Nasal O2, Rales, SOB on Exertion Gastrointestinal: Yes: Normal Bowel Sounds, Soft, Abdomen, Obese Cardiovascular: Yes: Tachycardia, Pulse Irregular,S1S2, no M/Cl/R JVD: No Carotid Bruit: No Heart Sounds: Yes: S1, S2 Murmur: Yes: Systolic Murmur, Grade 1 Edema: Yes Edema: LLE: 1+, RLE: 1+ CBC, BMP 11/09/19 09:00 11/10/19 06:42 Troponin, BNP 11/09/19 09:00 Troponin I 0.02 B-Natriuretic Peptide 7693.5 H Afib @ [address] changes Active Medications Apixaban (Eliquis -) 5 mg PO BID LENARD Last Admin: 11/10/19 09:23 Dose: 5 mg Documented by: Diltiazem HCl (Cardizem Injection -) 10 mg IVPUSH Q4H PRN PRN Reason: TACHYCARDIA Last Admin: 11/09/19 14:19 Dose: 10 mg Documented by: Furosemide (Lasix Injection -) 40 mg IVPUSH BIDLASIX [facility] Last Admin: 11/10/19 06:10 Dose: 40 mg Documented by: Metoprolol Succinate (Toprol Xl -) 50 mg PO DAILY [facility] Last Admin: 11/10/19 09:23 Dose: 50 mg Documented by: Imaging - Results Chest X-ray: Report Reviewed (Congestion, right effusion) Problem List - Problems (1) Paroxysmal atrial fibrillation with rapid ventricular response Code(s): I48.0 - PAROXYSMAL ATRIAL FIBRILLATION (2) Acute diastolic (congestive) heart failure Code(s): I50.31 - ACUTE DIASTOLIC (CONGESTIVE) HEART FAILURE (3) Hypertensive cardiomyopathy Code(s): I11.9 - HYPERTENSIVE HEART DISEASE WITHOUT HEART FAILURE; I43 - CARDIOMYOPATHY IN DISEASES CLASSIFIED ELSEWHERE Qualifiers: Heart failure presence: with heart failure Qualified Code(s): I11.0 - Hypertensive heart disease with heart failure; I43 - Cardiomyopathy in diseases classified elsewhere Assessment/Plan 1. Acute CHF: systolic and diastolic,EF 30-35%, Increased OCWP>15 mmHg: E?: Covid, vs HTN, AFb RVR,CAD? 2. Atrial fibrillation with RVR 3. Hypertensive heart disease 4. R/O OSAS 5. PUD not active 6.Covid 07/2019 Echo reviewed: LVH, mod LV dysfunction,global hypo EF 30-35%; severely dilated LA,mos RA, elevated EDP/LAP >15 mmHg; cardiomyopathy with decreased e' covid pending P: 1. IV diuresis with monitor diuretic response, renal fxn and electrolytes 2. Increase Toprol XL 50 to BID, Eliquis 5 bid given elevated risk score, 3.Add Entresto a day with increase as tolerated 4. Sleep study as outpatient r/o OSAS 5-This weekend to remain in hospital, adjust meds, decide on Wednesday for further management (likely outpt f/u) 5. F/u in office
--- NOTE | 2019-11-10 10:03 | PN ---
Progress Note, Physician History of Present Illness: Pt is relatively better Decreased SOB HR still not well Controlled Metoprolol BID Lasix 40 daily No Chest pain - Current Medication List Current Medications: Active Medications Apixaban (Eliquis -) 5 mg PO BID [facility] Last Admin: 11/10/19 09:23 Dose: 5 mg Documented by: Diltiazem HCl (Cardizem Injection -) 10 mg IVPUSH Q4H PRN PRN Reason: TACHYCARDIA Last Admin: 11/09/19 14:19 Dose: 10 mg Documented by: Furosemide (Lasix Injection -) 40 mg IVPUSH BIDLASIX [facility] Last Admin: 11/10/19 06:10 Dose: 40 mg Documented by: Metoprolol Succinate (Toprol Xl -) 50 mg PO DAILY [facility] Last Admin: 11/10/19 09:23 Dose: 50 mg Documented by: - Objective Vital Signs: Vital Signs Temperature 98.2 F 11/10/19 07:47 Pulse Rate 119 H 11/10/19 07:47 Respiratory Rate 22 H 11/10/19 07:47 Blood Pressure 147/85 11/10/19 07:47 O2 Sat by Pulse Oximetry (%) 95 11/10/19 07:47 Constitutional: Yes: Anxious Eyes: Yes: Conjunctiva Clear, EOM Intact HENT: Yes: Atraumatic, Normocephalic Neck: Yes: Supple, Trachea Midline Cardiovascular: Yes: Regular Rate and Rhythm, Pulse Irregular, S1, S2, S3 Respiratory: Yes: Regular, CTA Bilaterally Gastrointestinal: Yes: Normal Bowel Sounds, Soft Musculoskeletal: Yes: Joint Stiffness Edema: Yes Peripheral Pulses WNL: Yes Neurological: Yes: Alert, Oriented, Cran Nerves II-XII Intact Labs: CBC, BMP 11/09/19 09:00 11/10/19 06:42 INR, PTT INR 1.13 (0.83-1.09) H 11/09/19 09:00 Problem List - Problems (1) A-fib Code(s): I48.91 - UNSPECIFIED ATRIAL FIBRILLATION (2) Acute diastolic (congestive) heart failure Code(s): I50.31 - ACUTE DIASTOLIC (CONGESTIVE) HEART FAILURE (3) Anxiety Code(s): F41.9 - ANXIETY DISORDER, UNSPECIFIED (4) CHF (congestive heart failure) Code(s): I50.9 - HEART FAILURE, UNSPECIFIED (5) HTN (hypertension) Code(s): I10 - ESSENTIAL (PRIMARY) HYPERTENSION
[2019-11-10] MEDS ORDERED: PT OWN MED DRAWER 7, Y5N ONE ×2 (13:14→19:44)
[2019-11-10] MEDS: SACUBITRIL/VALSARTAN 24 MG-26 MG TABLET PO SCH ×2 (13:23→22:17)
[2019-11-10] MEDS: DOCUSATE SODIUM 100 MG CAPSULE (FP) PO SCH (22:15)
--- NOTE | 2019-11-11 06:38 | PN ---
Progress Note (short form) - Note Progress Note: Chief Complaint: Events noted, notes reviewed, sitting at the bedside, anxious to go home, denies any chest discomfort, reports dyspnea but clinically improved History of Present Illness: Seen and examined on telemetry. Events noted, notes reviewed, sitting at the bedside, anxious to go home, denies any chest discomfort, reports dyspnea but clinically improved Medications: Current Medications Generic Name Dose Route Start Last Admin Trade Name Freq PRN Reason Stop Dose Admin Apixaban 5 mg 11/09/19 22:00 11/11/19 09:29 Eliquis - PO 5 mg BID LENARD Administration Diltiazem HCl 10 mg 11/09/19 10:47 11/09/19 14:19 Cardizem Injection - IVPUSH 10 mg Q4H PRN Administration TACHYCARDIA Docusate Sodium 300 mg 11/10/19 22:00 11/10/19 22:15 Colace - PO 300 mg HS LENARD Administration Furosemide 40 mg 11/11/19 10:00 11/11/19 09:31 Lasix Injection - IVPUSH 40 mg DAILY LENARD Administration Metoprolol Succinate 50 mg 11/10/19 22:00 11/11/19 09:29 Toprol Xl - PO 50 mg BID LENARD Administration Sacubitril/Valsartan 1 tab 11/10/19 11:00 11/11/19 09:29 Entresto 24 Mg-26 Mg Tablet PO 1 tab BID LENARD Administration Review of Systems Constitutional: denies Chills or Fever Respiratory: reports: Dyspnea Cardiovascular: As noted above Gastrointestinal: denies Nausea, Vomiting, Diarrhea or Constipation or Abdominal Discomfort Genitourinary: No Symptoms Reported Musculoskeletal: No Symptoms Reported Vital Signs: Last Vital Signs Temp Pulse Resp BP Pulse Ox 98.0 F 105 H 20 138/77 95 11/11/19 08:30 11/11/19 08:30 11/11/19 08:30 11/11/19 08:30 11/11/19 08:30 Intake & Output 11/08/19 11/09/19 11/10/19 11/11/19 23:59 23:59 23:59 23:59 Intake Total 740 240 Output Total 1400 1050 600 Balance -1400 -310 -360 Weight 265 lb 244 lb 6.4 oz Neck: Supple Negative JVD Respiratory: Diminished Breath Sounds at the Bases Cardiovascular: S1 S2 Irregularly irregular Gastrointestinal: Soft Benign Normal Bowel Sounds Ext: Trace Edema Bilaterally Labs: CBC, BMP 11/11/19 05:40 11/11/19 05:40 CBC, BMP 11/09/19 09:00 11/10/19 06:42 Hepatic Panel Total Bilirubin 0.8 mg/dL (0.2-1) 11/09/19 09:00 AST 35 U/L (15-37) 11/09/19 09:00 ALT 72 U/L (13-61) H 11/09/19 09:00 Alkaline Phosphatase 81 U/L (45-117) 11/09/19 09:00 Albumin 3.6 g/dl (3.4-5.0) 11/09/19 09:00 INR, PTT INR 1.13 (0.83-1.09) H 11/09/19 09:00 Assessment/Plan ASSESSMENT: 1. Clinical presentation is consistent with acute on chronic class II-III NYHA classification left ventricular failure related to diastolic/systolic left ventricular dysfunction, resolving 2. Probable coronary artery disease angina pectoris 3. Persistent atrial fibrillation with periods of rapid ventricular response [id number] score of 3 4. Non-sustained ventricular tachycardia 5. Hypertensive heart disease 6. Obstructive sleep apnea syndrome to be considered in the differential diagnosis 7. History of peptic ulcer disease PLAN: 1. Continue diuretic therapy/Lasix therapy and initiate orally with close monitoring of renal function and electrolytes 2. Continue Toprol-XL therapy and dose titration as needed, hemodynamics permitting 3. Continue Entresto therapy and dose titration as needed, hemodynamics permitting 4. Continue Eliquis therapy with close monitoring of hemoglobin level 5. If atrial fibrillation is persistent consideration for elective synchronized cardioversion in 3-4 weeks 6. Recommend sleep study as outpatient for evaluation of the above-noted suspected obstructive sleep apnea syndrome Mikayla Peraza MD
[2019-11-11 06:57] LABS: BASO % 0.6 % (0-2.0); HEMATOCRIT 45.5 % (35.4-49); HEMOGLOBIN 14.9 GM/dL (11.7-16.9); LYMPH % 18.7 % (8-40); MCH 30.6 pg (25.7-33.7); MCHC 32.7 g/dl (32.0-35.9); MEAN CELL VOLUME 93.3 fl (80-96); MEAN PLT VOLUME 8.9 fl (7.5-11.1); NEUT % 71.7 % (42.8-82.8); PLATELET COUNT 286 K/MM3 (134-434); RBC 4.88 M/mm3 (4.00-5.60); RDW 13.4 % (11.9-15.9); WHITE BLOOD COUNT 8.8 K/mm3 (4.0-10.0)
[2019-11-11 07:23] LABS: BLOOD UREA NITROGEN 20.6 mg/dL (7-18); CALCIUM 8.7 mg/dL (8.5-10.1)
[2019-11-11] MEDS: SACUBITRIL/VALSARTAN 24 MG-26 MG TABLET PO SCH ×2 (09:29→21:52)
[2019-11-11] MEDS: APIXABAN 5 MG TABLET PO SCH ×2 (09:29→21:51)
[2019-11-11] MEDS: FUROSEMIDE 40 MG/4 ML INJECTABLE VIAL IVPUSH SCH (09:31)
--- NOTE | 2019-11-11 14:45 | PN ---
Progress Note, Physician History of Present Illness: Pt is relatively better Pt still has Afib /Episode of Vtach discussed with Dr Cifuentes we will optimize the rate PATRICIA while on anticoagulation/ Cardioversion Pt is very noncomplaint/Anxious person - Current Medication List Current Medications: Active Medications Apixaban (Eliquis -) 5 mg PO BID [facility] Last Admin: 11/11/19 09:29 Dose: 5 mg Documented by: Diltiazem HCl (Cardizem Injection -) 10 mg IVPUSH Q4H PRN PRN Reason: TACHYCARDIA Last Admin: 11/09/19 14:19 Dose: 10 mg Documented by: Docusate Sodium (Colace -) 300 mg PO HS [facility] Last Admin: 11/10/19 22:15 Dose: 300 mg Documented by: Furosemide (Lasix Injection -) 40 mg IVPUSH DAILY [facility] Last Admin: 11/11/19 09:31 Dose: 40 mg Documented by: Metoprolol Succinate (Toprol Xl -) 50 mg PO BID [facility] Last Admin: 11/11/19 09:29 Dose: 50 mg Documented by: Sacubitril/Valsartan (Entresto 24 Mg-26 Mg Tablet) 1 tab PO BID [facility] Last Admin: 11/11/19 09:29 Dose: 1 tab Documented by: - Objective Vital Signs: Vital Signs Temperature 98.0 F 11/11/19 08:30 Pulse Rate 105 H 11/11/19 08:30 Respiratory Rate 20 11/11/19 08:30 Blood Pressure 138/77 11/11/19 08:30 O2 Sat by Pulse Oximetry (%) 95 11/11/19 08:30 Constitutional: Yes: Calm Eyes: Yes: Conjunctiva Clear, EOM Intact HENT: Yes: Atraumatic, Normocephalic Gastrointestinal: Yes: Normal Bowel Sounds, Soft Edema: No Neurological: Yes: Alert, Oriented, Cran Nerves II-XII Intact Labs: CBC, BMP 11/11/19 05:40 11/11/19 05:40 INR, PTT INR 1.13 (0.83-1.09) H 11/09/19 09:00 Problem List - Problems (1) A-fib Code(s): I48.91 - UNSPECIFIED ATRIAL FIBRILLATION (2) Acute diastolic (congestive) heart failure Code(s): I50.31 - ACUTE DIASTOLIC (CONGESTIVE) HEART FAILURE (3) Anxiety Code(s): F41.9 - ANXIETY DISORDER, UNSPECIFIED (4) CHF (congestive heart failure) Code(s): I50.9 - HEART FAILURE, UNSPECIFIED (5) HTN (hypertension) Code(s): I10 - ESSENTIAL (PRIMARY) HYPERTENSION Assessment/Plan (1) HTN (hypertension) Code(s): I10 - ESSENTIAL (PRIMARY) HYPERTENSION (2) A-fib Code(s): I48.91 - UNSPECIFIED ATRIAL FIBRILLATION (3) Acute diastolic (congestive) heart failure Code(s): I50.31 - ACUTE DIASTOLIC (CONGESTIVE) HEART FAILURE (4) Anxiety Code(s): F41.9 - ANXIETY DISORDER, UNSPECIFIED (5) CHF (congestive heart failure) Code(s): I50.9 - HEART FAILURE, UNSPECIFIED (6) Back strain Code(s): S39.012A - STRAIN OF MUSCLE, FASCIA AND TENDON OF LOWER BACK, INIT/ Pt Had Echo. ECHO findings suggestive of Low EF and Pul HTN/ Cardiomyopathy? Pt will have PATRICIA/ Cardioversion if needed
--- NOTE | 2019-11-11 14:54 | EKG ---
Test Reason : Blood Pressure : / mmHG Vent. Rate : 112 BPM Atrial Rate : 113 BPM P-R Int : 000 ms QRS Dur : 090 ms QT Int : 340 ms P-R-T Axes : 000 -29 122 degrees QTc Int : 464 ms ATRIAL FIBRILLATION WITH RAPID VENTRICULAR RESPONSE ABNORMAL ECG WHEN COMPARED WITH ECG OF 09-NOV-2019 09:15, T WAVE INVERSION NOW EVIDENT IN LATERAL LEADS Confirmed by SHAMA DOAN MD ([id number]) on 11/11/2019 2:54:15 PM Referred By: Cathy ALEJANDRA Confirmed By:SHAMA DOAN MD
[2019-11-11] MEDS: SPIRONOLACTONE 25 MG TABLET PO SCH (18:11)
[2019-11-11] MEDS: DOCUSATE SODIUM 100 MG CAPSULE (FP) PO SCH (21:51)
[2019-11-11] MEDS: ZOLPIDEM TARTRATE 5 MG TABLET PO PRN (22:32)
--- NOTE | 2019-11-12 06:57 | PN ---
Progress Note (short form) - Note Progress Note: Chief Complaint: Events noted, notes reviewed, sitting at the bedside, again anxious to go home, denies any chest discomfort, reports dyspnea with physical exertion but clinically significantly improved History of Present Illness: Seen and examined on telemetry. Events noted, notes reviewed, sitting at the bedside, again anxious to go home, denies any chest discomfort, reports dyspnea with physical exertion but clinically significantly improved As per my discussion with patient's primary care provider yesterday there is no role for electrophysiology studies at this point unless patient demonstrates failure of atrial fibrillation control with one antiarrhythmic utilization at least at which point atrial fibrillation radiofrequency ablation would be recommended Patient eventually (Not this hospitalization) will require right and left heart cardiac catheterization coronary angiography for further evaluation of cardiomyopathy prior to which atrial fibrillation control is the objective since I strongly feel that his cardiomyopathy could be related to tachycardia induced cardiomyopathy Options of intervention include proceeding with early transesophageal echocardiography guided synchronized cardioversion/this hospitalization versus synchronized cardioversion in 3-4 weeks of adequate anticoagulation- as per my discussion with patient's primary care provider will attempt early intervention/PATRICIA guided synchronized cardioversion this coming week- inpatient, above was reviewed in detail with the patient and to be further discussed with his brother Arben Medications: Current Medications Generic Name Dose Route Start Last Admin Trade Name Freq PRN Reason Stop Dose Admin Apixaban 5 mg 11/09/19 22:00 11/12/19 09:32 Eliquis - PO 5 mg BID LENARD Administration Diltiazem HCl 10 mg 11/09/19 10:47 11/09/19 14:19 Cardizem Injection - IVPUSH 10 mg Q4H PRN Administration TACHYCARDIA Docusate Sodium 300 mg 11/10/19 22:00 11/11/19 21:51 Colace - PO 300 mg HS LENARD Administration Furosemide 40 mg 11/11/19 10:00 11/12/19 09:32 Lasix Injection - IVPUSH 40 mg DAILY LENARD Administration Metoprolol Succinate 50 mg 11/10/19 22:00 11/12/19 09:33 Toprol Xl - PO 50 mg BID LENARD Administration Sacubitril/Valsartan 1 tab 11/10/19 11:00 11/12/19 09:32 Entresto 24 Mg-26 Mg Tablet PO 1 tab BID LENARD Administration Spironolactone 25 mg 11/11/19 15:00 11/12/19 09:32 Aldactone - PO 25 mg DAILY LENARD Administration Zolpidem Tartrate 5 mg 11/11/19 22:11 11/11/19 22:32 Ambien - PO 5 mg HS PRN Administration INSOMNIA Review of Systems Constitutional: denies Chills or Fever Respiratory: reports: Dyspnea Cardiovascular: As noted above Gastrointestinal: denies Nausea, Vomiting, Diarrhea or Constipation or Abdominal Discomfort Genitourinary: No Symptoms Reported Musculoskeletal: No Symptoms Reported Vital Signs: Last Vital Signs Temp Pulse Resp BP Pulse Ox 98.0 F 102 H 20 163/76 94 L 11/12/19 06:00 11/12/19 06:00 11/12/19 06:00 11/12/19 06:00 11/11/19 21:00 Intake & Output 11/09/19 11/10/19 11/11/19 11/12/19 23:59 23:59 23:59 23:59 Intake Total 740 860 Output Total 1400 1050 600 Balance -1400 -310 260 Weight 265 lb 244 lb 6.4 oz Neck: Supple Negative JVD Respiratory: Diminished Breath Sounds at the Bases Cardiovascular: S1 S2 Irregularly irregular Gastrointestinal: Soft Benign Normal Bowel Sounds Ext: Trace Edema Bilaterally Labs: CBC, BMP 11/12/19 05:44 11/12/19 05:44 CBC, BMP 11/11/19 05:40 11/11/19 05:40 Hepatic Panel Total Bilirubin 0.8 mg/dL (0.2-1) 11/09/19 09:00 AST 35 U/L (15-37) 11/09/19 09:00 ALT 72 U/L (13-61) H 11/09/19 09:00 Alkaline Phosphatase 81 U/L (45-117) 11/09/19 09:00 Albumin 3.6 g/dl (3.4-5.0) 11/09/19 09:00 INR, PTT INR 1.13 (0.83-1.09) H 11/09/19 09:00 Assessment/Plan ASSESSMENT: 1. Clinical presentation is consistent with acute on chronic class II-III NYHA classification left ventricular failure related to diastolic/systolic left ventricular dysfunction, resolved 2. Probable coronary artery disease angina pectoris- further evaluation at a later date/outpatient evaluation 3. Persistent atrial fibrillation with periods of rapid ventricular response [id number] score of 3 4. Non-sustained ventricular tachycardia- optimization of patient's medical therapy 5. Hypertensive heart disease- further therapy adjustment 6. Obstructive sleep apnea syndrome to be considered in the differential diagnosis 7. History of peptic ulcer disease PLAN: 1. Continue diuretic therapy/Lasix therapy and initiate orally with close monito ring of renal function and electrolytes 2. Continue Toprol-XL therapy and dose titration as needed, hemodynamics permitting 3. Continue Entresto therapy and dose titration as needed, hemodynamics perm itting 4. Continue Eliquis therapy with close monitoring of hemoglobin level 5. As outlined above plan to proceed with PATRICIA guided synchronized cardioversion this coming week/inpatient risks, benefits and alternatives were reviewed in detail with the patient 6. Recommend sleep study as outpatient for evaluation of the above-noted suspected obstructive sleep apnea syndrome Mikayla Peraza MD
[2019-11-12 07:37] LABS: BASO % 0.5 % (0-2.0); EOS % 1.2 % (0-4.5); HEMATOCRIT 45.6 % (35.4-49); HEMOGLOBIN 15.2 GM/dL (11.7-16.9); LYMPH % 22.7 % (8-40); MCH 30.9 pg (25.7-33.7); MCHC 33.2 g/dl (32.0-35.9); MEAN CELL VOLUME 92.9 fl (80-96); MEAN PLT VOLUME 8.8 fl (7.5-11.1); MONO % 8.9 % (3.8-10.2); NEUT % 66.7 % (42.8-82.8); PLATELET COUNT 284 K/MM3 (134-434); RBC 4.91 M/mm3 (4.00-5.60); WHITE BLOOD COUNT 8.4 K/mm3 (4.0-10.0)
[2019-11-12 07:52] LABS: BLOOD UREA NITROGEN 21.7 mg/dL (7-18); CALCIUM 8.9 mg/dL (8.5-10.1); CREATININE 1.1 mg/dL (0.55-1.3); POTASSIUM 4.1 mmol/L (3.5-5.1)
[2019-11-12] MEDS ORDERED: PT OWN MED DRAWER 7, Y5N ONE ×3 (08:27→21:02)
[2019-11-12] MEDS: SACUBITRIL/VALSARTAN 24 MG-26 MG TABLET PO SCH (09:32)
[2019-11-12] MEDS: FUROSEMIDE 40 MG/4 ML INJECTABLE VIAL IVPUSH SCH (09:32)
[2019-11-12] MEDS: APIXABAN 5 MG TABLET PO SCH ×2 (09:32→22:02)
[2019-11-12] MEDS: SPIRONOLACTONE 25 MG TABLET PO SCH (09:32)
--- NOTE | 2019-11-12 14:01 | PN ---
Progress Note, Physician History of Present Illness: Case discussed with Dr Mikayla Peraza Pt rate need be controlled first Pt is noncomplaint and Nervous patient Spoke with Brother also on phone at beside with patient. will have PATRICIA/cardiversion if does not get converted medically. Discuused about Amiodarone also with cardiology for short period of time as the patient nervous robb and Cognitively does not comprehend well. No SOB No chest pain No Blood in stool/Urine - Current Medication List Current Medications: Active Medications Apixaban (Eliquis -) 5 mg PO BID [facility] Last Admin: 11/12/19 09:32 Dose: 5 mg Documented by: Docusate Sodium (Colace -) 300 mg PO HS [facility] Last Admin: 11/11/19 21:51 Dose: 300 mg Documented by: Furosemide (Lasix -) 40 mg PO DAILY [facility] Metoprolol Succinate (Toprol Xl -) 100 mg PO BID [facility] Sacubitril/Valsartan (Entresto 49 Mg-51 Mg Tablet) 1 tab PO BID [facility] Spironolactone (Aldactone -) 25 mg PO DAILY [facility] Last Admin: 11/12/19 09:32 Dose: 25 mg Documented by: Zolpidem Tartrate (Ambien -) 5 mg PO HS PRN PRN Reason: INSOMNIA Last Admin: 11/11/19 22:32 Dose: 5 mg Documented by: - Objective Vital Signs: Vital Signs Temperature 98.2 F 11/12/19 08:46 Pulse Rate 109 H 11/12/19 08:46 Respiratory Rate 20 11/12/19 08:46 Blood Pressure 142/74 11/12/19 08:46 O2 Sat by Pulse Oximetry (%) 96 11/12/19 08:46 Constitutional: Yes: Anxious Eyes: Yes: Conjunctiva Clear, EOM Intact HENT: Yes: Atraumatic, Normocephalic Neck: Yes: Supple, Trachea Midline Respiratory: Yes: Regular, CTA Bilaterally Edema: No Peripheral Pulses WNL: Yes Labs: CBC, BMP 11/12/19 05:44 11/12/19 05:44 INR, PTT INR 1.13 (0.83-1.09) H 11/09/19 09:00 Problem List - Problems (1) A-fib Code(s): I48.91 - UNSPECIFIED ATRIAL FIBRILLATION (2) Acute diastolic (congestive) heart failure Code(s): I50.31 - ACUTE DIASTOLIC (CONGESTIVE) HEART FAILURE (3) Anxiety Code(s): F41.9 - ANXIETY DISORDER, UNSPECIFIED (4) CHF (congestive heart failure) Code(s): I50.9 - HEART FAILURE, UNSPECIFIED (5) HTN (hypertension) Code(s): I10 - ESSENTIAL (PRIMARY) HYPERTENSION Assessment/Plan (1) HTN (hypertension) Code(s): I10 - ESSENTIAL (PRIMARY) HYPERTENSION (2) A-fib Code(s): I48.91 - UNSPECIFIED ATRIAL FIBRILLATION (3) Acute diastolic (congestive) heart failure Code(s): I50.31 - ACUTE DIASTOLIC (CONGESTIVE) HEART FAILURE (4) Anxiety Code(s): F41.9 - ANXIETY DISORDER, UNSPECIFIED (5) CHF (congestive heart failure) Code(s): I50.9 - HEART FAILURE, UNSPECIFIED (6) Back strain Code(s): S39.012A - STRAIN OF MUSCLE, FASCIA AND TENDON OF LOWER BACK, INIT/ Pt Had Echo. ECHO findings suggestive of Low EF and Pul HTN/ Cardiomyopathy? Pt will have PATRICIA/ Cardioversion if needed added spironolactone Spoke with Brother also on phone at beside with patient on wednesday. will have PATRICIA/cardiversion if does not get converted medically. Discuused about Amiodarone also with cardiology for short period of time as the patient nervous robb and Cognitively does not comprehend well.
[2019-11-12] MEDS: PANTOPRAZOLE 20 MG TABLET PO SCH (22:02)
[2019-11-12] MEDS: ZOLPIDEM TARTRATE 5 MG TABLET PO PRN (22:02)
[2019-11-12] MEDS: DOCUSATE SODIUM 100 MG CAPSULE (FP) PO SCH (22:09)
[2019-11-12] MEDS: SACUBITRIL/VALSARTAN 49 MG-51 MG TABLET PO SCH (22:12)
[2019-11-13 06:14] LABS: BASO % 0.8 % (0-2.0); EOS % 1.4 % (0-4.5); HEMATOCRIT 47.2 % (35.4-49); HEMOGLOBIN 15.5 GM/dL (11.7-16.9); LYMPH % 22.5 % (8-40); MCH 30.6 pg (25.7-33.7); MCHC 32.9 g/dl (32.0-35.9); MEAN CELL VOLUME 93.2 fl (80-96); MEAN PLT VOLUME 8.7 fl (7.5-11.1); MONO % 8.2 % (3.8-10.2); NEUT % 67.1 % (42.8-82.8); PLATELET COUNT 281 K/MM3 (134-434); RBC 5.06 M/mm3 (4.00-5.60); RDW 13.5 % (11.9-15.9); WHITE BLOOD COUNT 7.8 K/mm3 (4.0-10.0)
[2019-11-13 06:28] LABS: BLOOD UREA NITROGEN 24.3 mg/dL (7-18); CREATININE 1.1 mg/dL (0.55-1.3); POTASSIUM 4.3 mmol/L (3.5-5.1)
--- NOTE | 2019-11-13 09:42 | PN ---
Progress Note, Physician History of Present Illness: Patient denies any chest discomfort, OLIVEIRA significantly improved. Plan is for PATRICIA-guided cardioversion due to persistent rapid afib despite Toprol uptitration. Start amio oral load. - Current Medication List Current Medications: Active Medications Apixaban (Eliquis -) 5 mg PO BID [facility] Last Admin: 11/12/19 22:02 Dose: 5 mg Documented by: Docusate Sodium (Colace -) 300 mg PO HS [facility] Last Admin: 11/12/19 22:09 Dose: Not Given Documented by: Furosemide (Lasix -) 40 mg PO DAILY [facility] Metoprolol Succinate (Toprol Xl -) 100 mg PO BID [facility] Last Admin: 11/13/19 09:19 Dose: 100 mg Documented by: Pantoprazole Sodium (Protonix -) 20 mg PO BID [facility] Last Admin: 11/12/19 22:02 Dose: 20 mg Documented by: Sacubitril/Valsartan (Entresto 49 Mg-51 Mg Tablet) 1 tab PO BID [facility] Last Admin: 11/12/19 22:12 Dose: 1 tab Documented by: Spironolactone (Aldactone -) 25 mg PO DAILY [facility] Last Admin: 11/12/19 09:32 Dose: 25 mg Documented by: Zolpidem Tartrate (Ambien -) 5 mg PO PRN PRN Reason: INSOMNIA Last Admin: 11/12/19 22:02 Dose: 5 mg Documented by: - Objective Vital Signs: Vital Signs Temperature 98 F 11/13/19 09:00 Pulse Rate 104 H 11/13/19 09:00 Respiratory Rate 18 11/13/19 09:00 Blood Pressure 126/89 11/13/19 09:00 O2 Sat by Pulse Oximetry (%) 95 11/13/19 09:00 Constitutional: Yes: No Distress, Calm Neck: Yes: Supple Cardiovascular: Yes: Tachycardia, Pulse Irregular Respiratory: Yes: Regular, Diminished, On Nasal O2 Gastrointestinal: Yes: Soft, Hypoactive Bowel Sounds Edema: No Labs: CBC, BMP 11/13/19 05:23 11/13/19 05:23 INR, PTT INR 1.13 (0.83-1.09) H 11/09/19 09:00 - ....Imaging EKG: Report Reviewed (Tele: Afib 100s) Problem List - Problems (1) Paroxysmal atrial fibrillation with rapid ventricular response Code(s): I48.0 - PAROXYSMAL ATRIAL FIBRILLATION (2) Acute diastolic (congestive) heart failure Code(s): I50.31 - ACUTE DIASTOLIC (CONGESTIVE) HEART FAILURE (3) Hypertensive cardiomyopathy Code(s): I11.9 - HYPERTENSIVE HEART DISEASE WITHOUT HEART FAILURE; I43 - CARDIOMYOPATHY IN DISEASES CLASSIFIED ELSEWHERE Qualifiers: Heart failure presence: with heart failure Qualified Code(s): I11.0 - Hypertensive heart disease with heart failure; I43 - Cardiomyopathy in diseases classified elsewhere Assessment/Plan 11/09/2019 Echo: CMP with EF 30-355, dilated atria and myopathic e', elevated PCWP 1.Acute on chronic class II-III NYHA classification left ventricular failure re lated to diastolic/systolic left ventricular dysfunction, resolved. 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 Probable coronary artery disease angina pectoris- further evaluation at a later date/outpatient evaluation 3. Persistent atrial fibrillation with periods of rapid ventricular response CH [id number] score of 3 4. Non-sustained ventricular tachycardia- optimization of patient's medical the rapy 5. Hypertensive heart disease- further therapy adjustment 6. Obstructive sleep apnea syndrome to be considered in the differential diagnosis 7. History of peptic ulcer disease PLAN: 1. Continue oral diuretic Lasix 40 qd, agree with Aldactone 25 qd with close monitoring of diuretic response, renal function and electrolytes 2. Continue Toprol-XL 100 bid, hemodynamics permitting, start amio 200 bid oral load 3. Continue Entresto 49/41 bid and dose titration as needed, hemodynamics permitting 4. Continue Eliquis 5 bid with close monitoring of hemoglobin level 5. PATRICIA guided synchronized cardioversion today risks, benefits and alternatives were reviewed in detail with the patient 6. Recommend sleep study as outpatient for evaluation of the above-noted suspected obstructive sleep apnea syndrome 7. Eventual right and left heart cardiac catheterization coronary angiography for further evaluation of cardiomyopathy
[2019-11-13] MEDS: AMIODARONE HCL 200 MG TABLET PO SCH ×2 (11:37→21:54)
--- NOTE | 2019-11-13 12:23 | PN ---
Progress Note, Physician History of Present Illness: patient's compliance with Eliquis is in doubt. Eliquis compliance is of paramount importance after DCCV and atria stunning. In light of new development, will defer PATRICIA-guided cardioversion and schedule cardioversion as outpatient after several weeks of anticoagulation once compliance with medication and medical f/u is confirmed. - Current Medication List Current Medications: Active Medications Amiodarone HCl (Cordarone -) 200 mg PO BID [facility] Last Admin: 11/13/19 11:37 Dose: 200 mg Documented by: Apixaban (Eliquis -) 5 mg PO BID [facility] Last Admin: 11/12/19 22:02 Dose: 5 mg Documented by: Docusate Sodium (Colace -) 300 mg PO HS [facility] Last Admin: 11/12/19 22:09 Dose: Not Given Documented by: Furosemide (Lasix -) 40 mg PO DAILY [facility] Metoprolol Succinate (Toprol Xl -) 100 mg PO BID [facility] Last Admin: 11/13/19 09:19 Dose: 100 mg Documented by: Pantoprazole Sodium (Protonix -) 20 mg PO BID [facility] Last Admin: 11/12/19 22:02 Dose: 20 mg Documented by: Sacubitril/Valsartan (Entresto 49 Mg-51 Mg Tablet) 1 tab PO BID [facility] Last Admin: 11/12/19 22:12 Dose: 1 tab Documented by: Spironolactone (Aldactone -) 25 mg PO DAILY [facility] Last Admin: 11/12/19 09:32 Dose: 25 mg Documented by: Zolpidem Tartrate (Ambien -) 5 mg PO PRN PRN Reason: INSOMNIA Last Admin: 11/12/19 22:02 Dose: 5 mg Documented by: - Objective Vital Signs: Vital Signs Temperature 98 F 11/13/19 09:00 Pulse Rate 104 H 11/13/19 09:00 Respiratory Rate 18 11/13/19 09:00 Blood Pressure 126/89 11/13/19 09:00 O2 Sat by Pulse Oximetry (%) 95 11/13/19 09:00 Constitutional: Yes: No Distress Eyes: Yes: Conjunctiva Clear, EOM Intact HENT: Yes: Atraumatic, Normocephalic Neck: Yes: Supple, Trachea Midline Respiratory: Yes: Regular, CTA Bilaterally Gastrointestinal: Yes: Normal Bowel Sounds, Soft Edema: No Peripheral Pulses WNL: Yes Labs: CBC, BMP 11/13/19 05:23 11/13/19 05:23 INR, PTT INR 1.13 (0.83-1.09) H 11/09/19 09:00 Problem List - Problems (1) A-fib Code(s): I48.91 - UNSPECIFIED ATRIAL FIBRILLATION (2) Acute diastolic (congestive) heart failure Code(s): I50.31 - ACUTE DIASTOLIC (CONGESTIVE) HEART FAILURE (3) Anxiety Code(s): F41.9 - ANXIETY DISORDER, UNSPECIFIED (4) CHF (congestive heart failure) Code(s): I50.9 - HEART FAILURE, UNSPECIFIED (5) HTN (hypertension) Code(s): I10 - ESSENTIAL (PRIMARY) HYPERTENSION Assessment/Plan (1) HTN (hypertension) Code(s): I10 - ESSENTIAL (PRIMARY) HYPERTENSION (2) A-fib Code(s): I48.91 - UNSPECIFIED ATRIAL FIBRILLATION (3) Acute diastolic (congestive) heart failure Code(s): I50.31 - ACUTE DIASTOLIC (CONGESTIVE) HEART FAILURE (4) Anxiety Code(s): F41.9 - ANXIETY DISORDER, UNSPECIFIED (5) CHF (congestive heart failure) Code(s): I50.9 - HEART FAILURE, UNSPECIFIED (6) Back strain Code(s): S39.012A - STRAIN OF MUSCLE, FASCIA AND TENDON OF LOWER BACK, INIT/ Pt Had Echo. ECHO findings suggestive of Low EF and Pul HTN/ Cardiomyopathy? patient's compliance with Eliquis is in doubt. Eliquis compliance is of paramount importance after DCCV and atria stunning. In light of new development, will defer PATRICIA-guided cardioversion and schedule cardioversion as outpatient after several weeks of anticoagulation once compliance with medication and medical f/u is confirmed.
[2019-11-13] MEDS ORDERED: PT OWN MED DRAWER 7, Y5N ONE ×2 (12:25→21:45)
[2019-11-13] MEDS ORDERED: LIDOCAINE VISCOUS 2% ORAL/TOP 100 ML BOTTLE ONE (13:52)
[2019-11-13] MEDS: APIXABAN 5 MG TABLET PO SCH ×2 (14:22→21:54)
[2019-11-13] MEDS: PANTOPRAZOLE 20 MG TABLET PO SCH ×2 (14:22→21:54)
[2019-11-13] MEDS: FUROSEMIDE 40 MG TABLET (FP) PO SCH (14:22)
[2019-11-13] MEDS: SACUBITRIL/VALSARTAN 49 MG-51 MG TABLET PO SCH ×2 (14:22→21:53)
[2019-11-13] MEDS: SPIRONOLACTONE 25 MG TABLET PO SCH (14:22)
[2019-11-13] MEDS ORDERED: ALPRAZolam 0.25 MG TABLET PO SCH (19:30)
[2019-11-13] MEDS: DOCUSATE SODIUM 100 MG CAPSULE (FP) PO SCH (21:54)
[2019-11-13] MEDS ORDERED: ZOLPIDEM TARTRATE 5 MG TABLET PO PRN (22:00)
[2019-11-13] MEDS: ALPRAZolam 0.25 MG TABLET PO SCH (22:30)
[2019-11-14 07:20] VITALS: TEMP 97.6
[2019-11-14 08:48] VITALS: BP 128/92; PULSE 105
--- NOTE | 2019-11-14 09:34 | PN ---
Progress Note, Physician Chief Complaint: Events noted Persistent atrial fibrillation with variable HR History of Present Illness: Patient was seen and examined. Awake and alert. Chart was reviewed Denies chest pain, SOB or palpitations - Current Medication List Current Medications: Active Medications Alprazolam (Xanax -) 0.5 mg PO Q12H [facility] [place] Stop: 11/14/19 22:01 Last Admin: 11/13/19 22:30 Dose: Not Given Documented by: Amiodarone HCl (Cordarone -) 200 mg PO BID [facility] Last Admin: 11/13/19 21:54 Dose: 200 mg Documented by: Apixaban (Eliquis -) 5 mg PO BID [facility] Last Admin: 11/13/19 21:54 Dose: 5 mg Documented by: Docusate Sodium (Colace -) 300 mg PO HS [facility] [place] Last Admin: 11/13/19 21:54 Dose: Not Given Documented by: Furosemide (Lasix -) 40 mg PO DAILY [facility] [place] Last Admin: 11/13/19 14:22 Dose: 40 mg Documented by: Metoprolol Succinate (Toprol Xl -) 100 mg PO BID [facility] [place] Last Admin: 11/13/19 21:53 Dose: 100 mg Documented by: Pantoprazole Sodium (Protonix -) 20 mg PO BID [facility] [place] Last Admin: 11/13/19 21:54 Dose: 20 mg Documented by: Sacubitril/Valsartan (Entresto 49 Mg-51 Mg Tablet) 1 tab PO BID [facility] [place] Last Admin: 11/13/19 21:53 Dose: 1 tab Documented by: Spironolactone (Aldactone -) 25 mg PO DAILY [facility] [place] Last Admin: 11/13/19 14:22 Dose: 25 mg Documented by: Zolpidem Tartrate (Ambien -) 5 mg PO PRN PRN Reason: INSOMNIA Last Admin: 11/13/19 21:54 Dose: 5 mg Documented by: - Objective Vital Signs: Vital Signs Temperature 97.6 F 11/14/19 08:46 Pulse Rate 105 H 11/14/19 08:46 Respiratory Rate 20 11/14/19 08:48 Blood Pressure 128/92 11/14/19 08:46 O2 Sat by Pulse Oximetry (%) 94 L 11/14/19 08:48 Neck: Yes: Supple Cardiovascular: Yes: Tachycardia, Pulse Irregular, S1, S2 Respiratory: Yes: CTA Bilaterally Gastrointestinal: Yes: Normal Bowel Sounds, Soft. No: Tenderness Edema: No Additional Findings/Remarks: - Review of Systems Constitutional: denies Fever. denies: Chills Cardiovascular: denies Shortness of Breath. denies: Chest Pain, Palpitations Respiratory: denies Cough, SOB. denies: Hemoptysis, Orthopnea, PND, Wheezing Gastrointestinal: denies: Abdominal Pain, Constipation, Diarrhea, Melena, Nausea, Rectal Bleeding, Vomiting Genitourinary: denies: Dysuria, Hematuria Musculoskeletal: denies: Back Pain, Joint Pain Neurological: denies: Dizziness, Headache, Seizure, Syncope Labs: CBC, BMP 11/13/19 05:23 11/13/19 05:23 Problem List - Problems (1) Acute diastolic (congestive) heart failure Code(s): I50.31 - ACUTE DIASTOLIC (CONGESTIVE) HEART FAILURE (2) CHF (congestive heart failure) Code(s): I50.9 - HEART FAILURE, UNSPECIFIED (3) Cardiomyopathy Code(s): I42.9 - CARDIOMYOPATHY, UNSPECIFIED (4) HTN (hypertension) Code(s): I10 - ESSENTIAL (PRIMARY) HYPERTENSION (5) Hypertensive cardiomyopathy Code(s): I11.9 - HYPERTENSIVE HEART DISEASE WITHOUT HEART FAILURE; I43 - CARDIOMYOPATHY IN DISEASES CLASSIFIED ELSEWHERE Qualifiers: Heart failure presence: with heart failure Qualified Code(s): I11.0 - Hypertensive heart disease with heart failure; I43 - Cardiomyopathy in diseases classified elsewhere (6) Paroxysmal atrial fibrillation with rapid ventricular response Code(s): I48.0 - PAROXYSMAL ATRIAL FIBRILLATION Assessment/Plan 1.Acute on chronic class II-III NYHA classification left ventricular failure related to diastolic/systolic left ventricular dysfunction 2. Probable coronary artery disease angina pectoris 3. Persistent atrial fibrillation with periods of rapid ventricular response [id number] score of 3 4. Non-sustained ventricular tachycardia 5. Hypertensive heart disease 6. Obstructive sleep apnea syndrome to be considered in the differential diagnosis 7. History of peptic ulcer disease PLAN: 1. Continue oral diuretic Lasix 40 mg QD and Aldactone 25 mg QD with close mon itoring of renal function and electrolytes 2. Continue Toprol-XL 100 mg BID and Amiodarone 200 mg BID 3. Continue Entresto 49/41 mg BID and dose titration as needed 4. Continue Eliquis 5 mg BID with close monitoring of hemoglobin level. Emphasized importance of adhering to anticoagulation to reduce stroke risk as well as above medications to control HR 5. PATRICIA guided synchronized cardioversion was planned, but postponed by PMD with reasons as stated. PATRICIA +/- cardioversion can be done as outpatient once clinically better optimized. 6. Recommend sleep study as outpatient for evaluation of the above-noted suspected obstructive sleep apnea syndrome 7. Eventual right and left heart cardiac catheterization coronary angiography for further evaluation of cardiomyopathy and if LVEF remains below 35% after 90 days, consider ICD implant Patient may be discharged with follow up in the office. Luciano Wilkerson MD
[2019-11-14] MEDS: ALPRAZolam 0.25 MG TABLET PO SCH (09:54)
[2019-11-14] MEDS: FUROSEMIDE 40 MG TABLET (FP) PO SCH (09:54)
[2019-11-14] MEDS: AMIODARONE HCL 200 MG TABLET PO SCH (09:54)
[2019-11-14] MEDS: APIXABAN 5 MG TABLET PO SCH (09:54)
[2019-11-14] MEDS: SPIRONOLACTONE 25 MG TABLET PO SCH (09:54)
[2019-11-14] MEDS: SACUBITRIL/VALSARTAN 49 MG-51 MG TABLET PO SCH (09:55)
[2019-11-14] MEDS: PANTOPRAZOLE 20 MG TABLET PO SCH (09:55)
--- NOTE | 2019-11-14 11:34 | DS ---
Physical Examination Vital Signs: Vital Signs Temperature 97.6 F 11/14/19 08:46 Pulse Rate 105 H 11/14/19 08:46 Respiratory Rate 20 11/14/19 08:48 Blood Pressure 128/92 11/14/19 08:46 O2 Sat by Pulse Oximetry (%) 94 L 11/14/19 08:48 Constitutional: Yes: Anxious Eyes: Yes: Conjunctiva Clear, EOM Intact HENT: Yes: Atraumatic, Normocephalic Neck: Yes: Supple, Trachea Midline Cardiovascular: Yes: Regular Rate and Rhythm, S1, S2 Respiratory: Yes: Regular, CTA Bilaterally Gastrointestinal: Yes: Normal Bowel Sounds, Soft Edema: No Peripheral Pulses WNL: Yes Neurological: Yes: Alert, Oriented, Cran Nerves II-XII Intact Labs: CBC, BMP 11/13/19 05:23 11/13/19 05:23 Discharge Summary Problems reviewed: Yes Reason For Visit: SOB,CHF,HYPERTENSION,ATRIAL FIB W RAPID VENT RESP Current Active Problems A-fib (Acute) Acute diastolic (congestive) heart failure (Acute) Anxiety (Acute) CHF (congestive heart failure) (Acute) Cardiomyopathy (Acute) HTN (hypertension) (Acute) Hypertensive cardiomyopathy (Acute) Paroxysmal atrial fibrillation with rapid ventricular response (Acute) Shortness of breath (Acute) Hospital Course: 1.Acute on chronic class II-III NYHA classification left ventricular failure related to diastolic/systolic left ventricular dysfunction 2. Probable coronary artery disease angina pectoris 3. Persistent atrial fibrillation with periods of rapid ventricular response [id number] score of 3 4. Non-sustained ventricular tachycardia 5. Hypertensive heart disease 6. Obstructive sleep apnea syndrome to be considered in the differential diagnosis 7. History of peptic ulcer disease PLAN: 1. Continue oral diuretic Lasix 40 mg QD and Aldactone 25 mg QD with close monitoring of renal function and electrolytes 2. Continue Toprol-XL 100 mg BID and Amiodarone 200 mg BID 3. Continue Entresto 49/41 mg BID and dose titration as needed 4. Continue Eliquis 5 mg BID with close monitoring of hemoglobin level. Emphasized importance of adhering to anticoagulation to reduce stroke risk as well as above medications to control HR 5. PATRICIA guided synchronized cardioversion was planned, but postponed by PMD with reasons as stated. PATRICIA +/- cardioversion can be done as outpatient once clinically better optimized. 6. Recommend sleep study as outpatient for evaluation of the above-noted suspected obstructive sleep apnea syndrome 7. Eventual right and left heart cardiac catheterization coronary angiography for further evaluation of cardiomyopathy and if LVEF remains below 35% after 90 days, consider ICD implant Plan of Treatment: Pt wanted to go home discussed Risks and benifits Pt is very noncomplaint Condition: Improved - Instructions Diet, Activity, Other Instructions: 2 g Na and Low cholestrol diet Referrals: Bonnie Rodriguez MD [Primary Care Provider] - - Home Medications Comprehensive Discharge Medication List: Ambulatory Orders Acetaminophen W/ Codeine #3 [Tylenol # 3 -] 1 tab PO Q6H PRN #12 tablet 08/10/14 Vitamin B12 1,000 mcg PO DAILY 10/24/14 Loratadine 10 mg PO DAILY 11/13/19 Metoprolol Succinate [Toprol Xl] 50 mg PO DAILY 11/13/19 Omeprazole 20 mg PO BID 11/13/19 Tramadol HCl 50 mg PO DAILY PRN 11/13/19 traZODone HCL [Desyrel -] 50 mg PO HS PRN 11/13/19
--- NOTE | 2019-11-14 11:42 | PN ---
Progress Note, Physician History of Present Illness: Pt wanted go Home Pt is very Noncomplaint no Fever No SOB Very anxious alll meds sent to his pharmacy - Current Medication List Current Medications: Active Medications Alprazolam (Xanax -) 0.5 mg PO Q12H [facility] Stop: 11/14/19 22:01 Last Admin: 11/14/19 09:54 Dose: 0.5 mg Documented by: Amiodarone HCl (Cordarone -) 200 mg PO BID [facility] Last Admin: 11/14/19 09:54 Dose: 200 mg Documented by: Apixaban (Eliquis -) 5 mg PO BID [facility] Last Admin: 11/14/19 09:54 Dose: 5 mg Documented by: Docusate Sodium (Colace -) 300 mg PO [facility] Last Admin: 11/13/19 21:54 Dose: Not Given Documented by: Furosemide (Lasix -) 40 mg PO DAILY [facility] Last Admin: 11/14/19 09:54 Dose: 40 mg Documented by: Metoprolol Succinate (Toprol Xl -) 100 mg PO BID [facility] Last Admin: 11/14/19 09:55 Dose: 100 mg Documented by: Pantoprazole Sodium (Protonix -) 20 mg PO BID [facility] Last Admin: 11/14/19 09:55 Dose: 20 mg Documented by: Sacubitril/Valsartan (Entresto 49 Mg-51 Mg Tablet) 1 tab PO BID [facility] Last Admin: 11/14/19 09:55 Dose: 1 tab Documented by: Spironolactone (Aldactone -) 25 mg PO DAILY [facility] Last Admin: 11/14/19 09:54 Dose: 25 mg Documented by: Zolpidem Tartrate (Ambien -) 5 mg PO PRN PRN Reason: INSOMNIA Last Admin: 11/13/19 21:54 Dose: 5 mg Documented by: - Objective Vital Signs: Vital Signs Temperature 97.6 F 11/14/19 08:46 Pulse Rate 105 H 11/14/19 08:46 Respiratory Rate 20 11/14/19 08:48 Blood Pressure 128/92 11/14/19 08:46 O2 Sat by Pulse Oximetry (%) 94 L 11/14/19 08:48 Constitutional: Yes: Anxious Eyes: Yes: Conjunctiva Clear, EOM Intact HENT: Yes: Atraumatic, Normocephalic Neck: Yes: Supple, Trachea Midline Cardiovascular: Yes: Regular Rate and Rhythm Respiratory: Yes: Regular, CTA Bilaterally Gastrointestinal: Yes: Normal Bowel Sounds, Soft Edema: No Peripheral Pulses WNL: Yes Neurological: Yes: Oriented, Cran Nerves II-XII Intact Labs: CBC, BMP 11/13/19 05:23 11/13/19 05:23 INR, PTT INR 1.13 (0.83-1.09) H 11/09/19 09:00 Problem List - Problems (1) A-fib Code(s): I48.91 - UNSPECIFIED ATRIAL FIBRILLATION (2) Acute diastolic (congestive) heart failure Code(s): I50.31 - ACUTE DIASTOLIC (CONGESTIVE) HEART FAILURE (3) Anxiety Code(s): F41.9 - ANXIETY DISORDER, UNSPECIFIED (4) CHF (congestive heart failure) Code(s): I50.9 - HEART FAILURE, UNSPECIFIED (5) HTN (hypertension) Code(s): I10 - ESSENTIAL (PRIMARY) HYPERTENSION Assessment/Plan (1) HTN (hypertension) Code(s): I10 - ESSENTIAL (PRIMARY) HYPERTENSION (2) A-fib Code(s): I48.91 - UNSPECIFIED ATRIAL FIBRILLATION (3) Acute diastolic (congestive) heart failure Code(s): I50.31 - ACUTE DIASTOLIC (CONGESTIVE) HEART FAILURE (4) Anxiety Code(s): F41.9 - ANXIETY DISORDER, UNSPECIFIED (5) CHF (congestive heart failure) Code(s): I50.9 - HEART FAILURE, UNSPECIFIED (6) Back strain Code(s): S39.012A - STRAIN OF MUSCLE, FASCIA AND TENDON OF LOWER BACK, INIT/ Pt Had Echo. ECHO findings suggestive of Low EF and Pul HTN/ Cardiomyopathy? patient's compliance with Eliquis is in doubt. Eliquis compliance is of paramount importance after DCCV and atria stunning. In light of new development, will defer PATRICIA-guided cardioversion and schedule cardioversion as outpatient after several weeks of anticoagulation once compliance with medication and medical f/u is confirmed. Pt will FU with Cardiology and PMD As Pt is very noncomplaint Pt advised to see me in office with all Meds all Meds sent to his pharmacy including Ambien and xanax
== END 2019-11-14 12:59 | disposition home or self-care (01) | DRG 291 ==
LOC: JER 08:16 → JERBED 10:48 → J4W 20:47
PROVIDERS: ADMIT Internal Medicine; ATTEND Internal Medicine
DX: I11.0 Hypertensive heart disease with heart failure (principal); I50.31 Acute diastolic (congestive) heart failure; I48.19 Other persistent atrial fibrillation; J45.909 Unspecified asthma, uncomplicated; I43 Cardiomyopathy in diseases classified elsewhere; Z87.11 Personal history of peptic ulcer disease; I48.0 Paroxysmal atrial fibrillation; G47.33 Obstructive sleep apnea (adult) (pediatric); I25.10 Atherosclerotic heart disease of native coronary artery without angina pectoris; F41.9 Anxiety disorder, unspecified; K59.09 Other constipation; S39.012A Strain of muscle, fascia and tendon of lower back, initial encounter
CPT/HCPCS: 36415; 71045-TC-FY; 80048; 80053; 80061; 81003; 82550; 82553; 83036; 83721; 83880; 84443; 84484; 85025; 85610; 85730; 93005; 93010; 93306-TC; 93970-TC; 99285-25; U0003

== ENCOUNTER 2020-01-15 05:27 | Day surgery (SDC) | payer BC ==
--- OUTSIDE RECORDS SUMMARY | 2020-01-09 08:08 | XMS ---
:1955 Author Organization [facility] Care Team Providers Name Role Phone GARETT RATLIFF Unavailable Unavailable Re-disclosure Warning The records that you are about to access may contain information from federally- assisted alcohol or drug abuse programs. If such information is present, then the following federally mandated warning applies: This information has been disclosed to you from records protected by federal confidentiality rules (42 CFR part 2). The federal rules prohibit you from making any further disclosure of this information unless further disclosure is expressly permitted by the written consent of the person to whom it pertains or as otherwise permitted by 42 CFR part 2. A general authorization for the release of medical or other information is NOT sufficient for this purpose. The Federal rules restrict any use of the information to criminally investigate or prosecute any alcohol or drug abuse patient.The records that you are about to access may contain highly sensitive health information, the redisclosure of which is protected by Article 27-F of the [facility] Public Health law. If you continue you may haveaccess to information: Regarding HIV / AIDS; Provided by facilities licensed or operated by the [facility] Office of Mental Health; or Provided by the [facility] Office for People With Developmental Disabilities. If such information is present, then the following [facility] mandated warning applies: This information has been disclosed to you from confidential records which are protected by state law. State law prohibits you from making any further disclosure of this information without the specific written consent of the person to whom it pertains, or as otherwise permitted by law. Any unauthorized further disclosure in violation of state law may result in a fine or custodial sentence or both. A general authorization for the release of medical or other information is NOT sufficient authorization for further disclosure. Encounters Encounter Providers Location Date Indications Data Source(s ) Outpatient Attender: EVY, [facility]28[facility]2019 Z03.[facility] [employer] Z03.818 Outpatient Attender: EVY 08/10/2019 02:00:00 Z03.818 [facility] [employer]aceuticalsYESICASatori Pharmaceuticalsdmitter: EVY, PM EDT [facility] [employer] Z03.818 Insurance Providers Payer name Policy type / Policy ID Covered Covered green party's Policy Plan Coverage type green party ID relationship to Hernandez Information hernandez BC PPO [id number] SP [id number] Problems, Conditions, and Diagnoses Code Display Name Description Problem Type Effective Data Sour ce(s) Dates Z03.818 Encounter for ENCNTR FOR OBS Diagnosis 08/28/2019 [facility] observation for FOR SUSP EXPSR TO 11:00:00 AM [employer] suspected OTH BIOLG AGENTS EDT [facility] poration exposure to other RULED OUT biological agents ruled out Results ID Date Data Source [id number] 11/09/2019 03:30:00 PM EDT [facility] Name Value Range Interpretation Description Data Sup porting Code Source(s) Document(s ) SARS [facility] coronavirus 2 RNA This lab was ordered by [facility] and reported by [facility]. ID Date Data Source [id number] 08/28/2019 12:00:00 AM EDT [facility] Name Value Range Interpretation Code Description Data Shauna rce(s) Supporting Document(s ) 2019-nCoV [facility] RNA XXX DEVAN+probe- Imp This lab was ordered by [facility] and reported by [employer]. ID Date Data Source [id number] 08/10/2019 12:00:00 AM EDT [facility] Name Value Range Interpretation Code Description Data Shauna e(s) Supporting Document(s ) 2019-nCoV [facility] RNA XXX DEVAN+probe- Imp This lab was ordered by [facility] and reported by [employer] Procedure
[2020-01-12 15:24] VITALS: BMI 30.6
--- OUTSIDE RECORDS SUMMARY | 2020-01-15 05:30 | XMS ---
:1955 Author Organization [facility] Care Team Providers Name Role Phone EVY Unavailable Unavailable Re-disclosure Warning The records that [...] is protected by Article 27-F of the [facility] Public Health law. If you continue you may haveaccess to information: Regarding HIV / AIDS; Provided by facilities licensed or operated by the [facility] Office of Mental Health; or Provided by the [facility] Office for People With Developmental Disabilities. If such information is present, then the following [facility] mandated warning applies: This information has been [...] law may result in a fine or usp sentence or both. A general authorization for the release of medical or other information is NOT sufficient authorization for further disclosure. Encounters Encounter Providers Location Date Indications Data Source(s ) Outpatient Attender: 08/28/2019 Z03.818 [facility] unt KARAdmitter: 11:00:00 AM Health Care KARReferrer: EVY EDT [employer] Z03.818 Outpatient Attender: KARAdmitter: 08/10/2019 02:00:00 Z03. 818 [facility] PM EDT [employer] Z03.818 Insurance Providers Payer name Policy type / Policy ID Covered Covered libertarian's Policy Plan Coverage type libertarian ID relationship to Hernandez Information hernandez BC PPO [id number] SP [id number] BC PPO [id number] SP [id number] Problems, Conditions, and Diagnoses Code Display Name Description Problem Type Effective Data Sour ce(s) Dates Z03.818 Encounter for ENCNTR FOR OBS Diagnosis 08/28/2019 [facility] observation for FOR SUSP EXPSR TO 11:00:00 AM [employer] suspected OTH BIOLG AGENTS EDT Care [facility] poration exposure to other RULED OUT biological agents ruled out Results ID Date Data Source [id number] 01/10/2020 10:07:00 AM EDT [facility] Name Value Range Interpretation Description Data Sup porting Code Source(s) Document(s ) SARS [facility] coronavirus 2 RNA This lab was ordered by [facility] and reported by [facility]. ID Date Data Source [id number] 11/09/2019 03:30:00 PM EDT [facility] Name Value Range Interpretation Description Data Sup porting Code Source(s) Document(s ) SARS [facility] coronavirus 2 RNA This lab was ordered by [facility] and reported by [facility]. ID Date Data Source [id number] 08/28/2019 12:00:00 AM EDT [facility] Name Value Range Interpretation Code Description Data Shauna rce(s) Supporting Document(s ) 2019-nCoV [facility] RNA XXX DEVAN+probe- Imp This lab was ordered by [facility] and reported by [email or web address]. ID Date Data Source [id number] 08/10/2019 12:00:00 AM EDT [facility] Name Value Range Interpretation Code Description Data Shauna rce(s) Supporting Document(s ) 2018-nCoV [facility] RNA XXX DEVAN+probe- Imp This lab was ordered by [facility] and reported by [email or web address] Procedure
[2020-01-15] MEDS ORDERED: MIDAZOLAM HCL 2 MG/2 ML SINGLE DOSE VIAL ONE ×2 (13:19)
[2020-01-15 13:49] VITALS: TEMP 98
--- NOTE | 2020-01-15 14:05 | EKG ---
Test Reason : Blood Pressure : / mmHG Vent. Rate : 060 BPM Atrial Rate : 060 BPM P-R Int : 202 ms QRS Dur : 094 ms QT Int : 432 ms P-R-T Axes : 074 -32 060 degrees QTc Int : 432 ms SINUS RHYTHM WITH PREMATURE ATRIAL COMPLEXES LEFT AXIS DEVIATION NONSPECIFIC T WAVE ABNORMALITY ABNORMAL ECG WHEN COMPARED WITH ECG OF 11-NOV-2019 12:29, SINUS RHYTHM HAS REPLACED ATRIAL FIBRILLATION VENT. RATE HAS DECREASED BY 52 BPM T WAVE VARIATION Confirmed by LUCIANO BANEGAS MD ([id number]) on 01/15/2020 2:05:40 PM Referred By: Luciano Banegas Confirmed By:LUCIANO BANEGAS MD
[2020-01-15 14:23] VITALS: PULSE 61
[2020-01-15 15:31] VITALS: BP 130/80
== END 2020-01-15 15:05 | disposition home or self-care (01) ==
LOC: JASU-ENDO 05:27
PROVIDERS: ATTEND Internal Medicine Cardiovascular Disease
PROC: 5A2204Z Restoration of Cardiac Rhythm, Single (ICD-10-PCS; principal; 2020-01-15 12:30)
DX: I48.91 Unspecified atrial fibrillation (principal)
CPT/HCPCS: 92960; 93005; 93010

== ENCOUNTER 2021-03-02 00:44 | Emergency (ER) | payer BC ==
[2021-03-02 00:57] VITALS: BP 148/79; PULSE 73; TEMP 97.9; BMI 32.5
[2021-03-02 01:41] LABS: BASO % 0.3 % (0-2.0); EOS % 0.6 % (0-4.5); HEMATOCRIT 44.8 % (35.4-49); HEMOGLOBIN 15.4 GM/dL (11.7-16.9); LYMPH % 6.2 % (8-40); MCHC 34.4 g/dl (32.0-35.9); MEAN CELL VOLUME 92.9 fl (80-96); MEAN PLT VOLUME 7.5 fl (7.5-11.1); MONO % 11.2 % (3.8-10.2); NEUT % 81.7 % (42.8-82.8); PLATELET COUNT 215 10^3/uL (134-434); RBC 4.82 M/mm3 (4.00-5.60); RDW 12.5 % (11.9-15.9); WHITE BLOOD COUNT 7.9 K/mm3 (4.0-10.0)
[2021-03-02 02:09] LABS: CHLORIDE 106 mmol/L (98-107); SODIUM 139 mmol/L (136-145)
[2021-03-02 02:11] LABS: ANION GAP 7 MMOL/L (8-16); CALCIUM 8.7 mg/dL (8.5-10.1); CO2 25 mmol/L (21-32)
[2021-03-02 02:12] LABS: ALBUMIN 3.6 g/dl (3.4-5.0); BLOOD UREA NITROGEN 14.1 mg/dL (7-18); GLUCOSE,RANDOM 119 mg/dL (74-106)
[2021-03-02 02:15] LABS: CREATININE 1.1 mg/dL (0.55-1.3); SGOT/AST 36 U/L (15-37); SGPT/ALT 38 U/L (13-61)
[2021-03-02 02:16] LABS: BILIRUBIN,TOTAL 0.5 mg/dL (0.2-1); TOT PROT 7.1 g/dl (6.4-8.2)
[2021-03-02 02:18] LABS: ALK PHOS 104 U/L (45-117)
[2021-03-02] MEDS ORDERED: ALBUTEROL SO4 2.5/IPRATROPIUM 0.5 INH SOL 3 ML VIAL.NEB. NEB ONE (02:47)
[2021-03-02] MEDS: ALBUTEROL SO4 2.5/IPRATROPIUM 0.5 INH SOL 3 ML VIAL.NEB. NEB SCH (02:51)
== END 2021-03-02 03:53 | disposition left against medical advice (07) ==
LOC: JER 00:44
PROC: 3E0F7GC Introduction of Other Therapeutic Substance into Respiratory Tract, Via Natural or Artificial Opening (ICD-10-PCS; principal; 2021-03-02)
DX: J06.9 Acute upper respiratory infection, unspecified (principal); Z11.52 Encounter for screening for COVID-19
CPT/HCPCS: 36415; 71046-TC-FY; 80053; 82550; 82553; 83880; 84484; 85025; 87804; 93005; 93010; 99285-25; C9803; U0003; U0005

== ENCOUNTER 2021-11-17 05:42 | Day surgery (SDC) | payer OTHER, BC ==
[2021-11-13 14:07] VITALS: BMI 36.8
[2021-11-17] MEDS ORDERED: MIDAZOLAM HCL 2 MG/2 ML SINGLE DOSE VIAL ONE (12:02)
[2021-11-17 13:53] VITALS: TEMP 98
[2021-11-17 15:52] VITALS: BP 118/83; PULSE 75; RESP 20
== END 2021-11-17 14:15 | disposition home or self-care (01) ==
LOC: JASU-ENDO 05:42
PROVIDERS: ATTEND Internal Medicine Cardiovascular Disease
PROC: 5A2204Z Restoration of Cardiac Rhythm, Single (ICD-10-PCS; principal; 2021-11-17 12:00)
DX: I48.91 Unspecified atrial fibrillation (principal)
CPT/HCPCS: 92960; 93005; 93010

== ENCOUNTER 2022-02-22 15:24 | Emergency (ER) | payer OTHER, BC ==
[2022-02-22 15:58] VITALS: BP 116/70; PULSE 70; RESP 18; TEMP 98.1; BMI 33.7
[2022-02-22] MEDS ORDERED: LORazepam 2 MG TABLET PO ONE (18:10)
[2022-02-22 18:13] LABS: PH,URINE 5.5 (5.0-8.0); URINE APPEARANCE CLEAR; URINE BILIRUBIN NEGATIVE (NEGATIVE); URINE COLOR YELLOW; URINE GLUCOSE (UA) NEGATIVE (NEGATIVE); URINE KETONE NEGATIVE (NEGATIVE); URINE LEUK ESTERASE NEGATIVE (NEGATIVE); URINE NITRITE NEGATIVE (NEGATIVE); URINE PROTEIN NEGATIVE (NEGATIVE); URINE UROBILINOGEN 0.2 mg/dL (0.2-1.0)
[2022-02-22] MEDS ORDERED: LORazepam 1 MG TABLET ONE (18:15)
[2022-02-22 18:32] LABS: BASO % 0.7 % (0-2.0); EOS % 1.7 % (0-4.5); HEMOGLOBIN 14.9 GM/dL (11.7-16.9); LYMPH % 16.9 % (8-40); MCH 31.4 pg (25.7-33.7); MCHC 33.8 g/dl (32.0-35.9); MEAN PLT VOLUME 8.7 fl (7.5-11.1); NEUT % 71.7 % (42.8-82.8); PLATELET COUNT 280 10^3/uL (134-434); RBC 4.73 M/mm3 (4.00-5.60); WHITE BLOOD COUNT 7.3 K/mm3 (4.0-10.0)
[2022-02-22 19:56] LABS: CALCIUM 8.9 mg/dL (8.5-10.1)
[2022-02-22 19:57] LABS: BLOOD UREA NITROGEN 30.7 mg/dL (7-18)
[2022-02-22 20:00] LABS: CREATININE 1.2 mg/dL (0.55-1.3)
[2022-02-22 20:02] LABS: BILIRUBIN,TOTAL 0.4 mg/dL (0.2-1)
[2022-02-22 20:08] LABS: ALBUMIN 3.5 g/dl (3.4-5.0); TOT PROT 6.6 g/dl (6.4-8.2)
== END 2022-02-22 23:03 | disposition home or self-care (01) ==
LOC: JER 15:24
DX: R10.32 Left lower quadrant pain (principal)
CPT/HCPCS: 36415; 74177-TC; 80053; 81003; 83690; 85025; 87086; 99284-25; Q9967

== ENCOUNTER 2022-11-03 06:40 | Emergency (ER) | payer OTHER, BC ==
[2022-11-03 07:09] VITALS: PULSE 81; RESP 16; TEMP 97.9; BMI 34.0
[2022-11-03 07:47] VITALS: BP 134/84
== END 2022-11-03 08:05 | disposition home or self-care (01) ==
LOC: JER 06:40
DX: H93.8X1 Other specified disorders of right ear (principal)
CPT/HCPCS: 99282-25